=== PATIENT | male | born 1935 | race Caucasian/White ===

== ENCOUNTER 2016-09-05 11:00 | Outpatient (RCR) | payer MEDICARE ==
--- OUTSIDE RECORDS SUMMARY | 2016-08-08 08:57 | XMS REPORT | Continuity of Care Document ---
Author Author [facility] Organization [facility] Address Unknown Phone Unavailable Care Team Providers Care Youth Services Specialist Name Role Phone CALVIN GREEN MD PCP Insurance Providers Payer Name Policy Number Subscriber Name Relationship [employer] Medicare [id number] Carlos Culp 18 Self / Same As Patient Blue Cross [facility] Supp [id number] Carlos Culp Self / Same As Patient Advance Directives Directive Response Recorded Date/Time Advance Directives No 10/31/15 2:48pm Health Care Power of Carton Folder No 10/31/15 2:48pm Organ Donor No 10/31/15 2:48pm Resuscitation Status Full Code 10/31/15 2:48pm Chief Complaint and Reason for Visit Chief Complaint Neuro-Stroke Like Symptoms Reason for Visit Transient cerebral ischemia Problems Active Problems Medical Problem Onset Date Status Transient cerebral ischemia Unknown Acute Medications Current Home Medications Medication Dose Units Route Directions Days/Qty Instructions Start Date Allopurinol 300 Mg 300 Mg Oral Daily 10/29/14 Atorvastatin 20 Mg 20 Mg Oral 1700 10/29/14 Lisinopril 40 Mg 40 Mg Oral Daily 10/29/14 Labetalol Hcl (Trandate) 200 Mg 200 Mg Oral Twice A Day 10/29/14 [place]-3/Dha/Epa/Fish Oil 1 Each 1,400 Mg Oral Daily 10/29/14 Vit B12/Lm-Folate Ca/Vit B6/B2 1 Tab 1 Tab Oral Daily 10/31/14 [Amlodipine Besylate] 10 Mg 10 Mg Oral Daily 11/01/14 Docusate Sodium 100 Mg 100 Mg Oral Daily 30 11/08/14 Aspirin 81 Mg 81 Mg Oral Twice A Day 60 Days 11/08/14 Past Home Medications Medication Directions Ordered Status Aspirin 81 Mg Tablet.dr, 81 Mg Oral Daily 10/29/14 Discontinued Naproxen Sodium 220 Mg Tablet, 440 Mg Oral Twice A Day 10/29/14 Discontinued [Cerefalin] , 1 Ea Oral Daily 10/30/14 Discontinued Dipyridamole/Aspirin 1 Ea Cap, 1 Ea Oral Twice A Day 11/01/14 Discontinued Tramadol Hcl 50 Mg Tablet, 50 Mg Oral Four Times Daily as needed for Maria Fernanda Discontinued Social History Social History Problem Response Recorded Date/Time Alcohol Use Denies Use 10/31/2015 2:48pm Recreational Drug Use No 10/31/2015 2:48pm Recent Foreign Travel No 10/31/2015 2:25pm Recent Infectious Disease Exposure No 10/31/2015 2:25pm Hospitalization with Isolation Denies 10/31/2015 2:25pm Sexually Transmitted Disease No 10/31/2015 2:48pm HIV/AIDS No 10/31/2015 2:48pm Smoking Status Never a Smoker 10/31/2015 2:48pm Do you dip or chew tobacco? Y CHEWS 2-3 TIMES A DAY 10/31/2015 2:48pm Query Response Start Date Stop Date Smoking Status Never a Smoker Hospital Discharge Instructions No hospital discharge instructions. Plan of Care Discharge Date 10/31/15 3:48pm Disposition 01 HOME, SELF-CARE Instructions/Education Provided Transient Ischemic Attack (ED) Prescriptions See Medication Section Referrals CALVIN GREEN MD - Primary Care Physician Additional Instructions/Education INCREASE YOUR DAILY ASPIRIN DOSE TO A FULL 325 MG ASPIRIN ( OR 4 BABY ASPIRIN) A DAY TAKE YOUR REGULAR MEDICATIONS PRESCRIBED FOLLOW UP WITH DR. GREEN NEXT WEEK RETURN TO ER IF SYMPTOMS WORSEN All discharge instructions reviewed with patient and/or family. Voiced understanding. Functional Status No functional status results. Allergies, Adverse Reactions, Alerts No known allergies. Immunizations Name Given Type Date of Pneumonia Vaccine 11/03/11 Historical Tetanus Booster (TDap) Unknown Historical Vital Signs Acute Vital Signs Vital Response Date/Time Temperature (Fahrenheit) 97.9 degrees F (97.6 - 99.5) 10/31/2015 2:25pm Temperature (Calculated Celsius) 36.17506 degrees C (36.4 - 37.5) 10/31/2015 2:25pm Pulse Rate (adult) 61 bpm (60 - 90) 10/31/2015 2:25pm Respiratory Rate 14 bpm (12 - 24) 10/31/2015 2:25pm O2 Sat by Pulse Oximetry 98 % (88 - 100) 10/31/2015 2:25pm Blood Pressure 184/87 mm Hg 10/31/2015 2:25pm Blood Pressure Mean 119 mm Hg 10/31/2015 2:25pm Pain Pain Intensity 0 10/31/2015 2:25pm Height (Feet) 6 feet 10/31/2015 2:25pm Height (Inches) 1 inches 10/31/2015 2:25pm Height (Calculated Centimeters) 185.820357 cm 10/31/2015 2:25pm Weight (Pounds) 215 pounds 10/31/2015 2:25pm Weight (Calculated Kilograms) 97.331882 kilograms 10/31/2015 2:25pm Height 6 ft 1 in Weight 215 lb Body Mass Index 28.4 kg/m^2 Results Laboratory Results Test Name Result Units Flags Reference Collection Date/Time Result Date/ Time Comments White Blood Count 11.8 10^3/uL H 4.3-11.0 10/31/2015 2:32pm 10/31/2015 2: 41pm Red Blood Count 4.51 10^6/uL 4.35-5.85 10/31/2015 2:32pm 10/31/2015 2: 41pm Hemoglobin 14.4 G/DL 13.3-17.7 10/31/2015 2:32pm 10/31/2015 2:41pm Hematocrit 41 % 40-54 10/31/2015 2:32pm 10/31/2015 2:41pm Mean Corpuscular Volume 91 FL 80-99 10/31/2015 2:32pm 10/31/2015 2: 41pm Mean Corpuscular Hemoglobin 32 PG 25-34 10/31/2015 2:32pm 10/31/2015 2: 41pm Mean Corpuscular Hemoglobin Concent 35 G/DL 32-36 10/31/2015 2:32pm 2:41pm Red Cell Distribution Width 13.4 % 10.0-14.5 10/31/2015 2:32pm 2015 2:41pm Platelet Count 272 10^3/uL 130-400 10/31/2015 2:[facility] 10/31/2015 2:41pm Mean Platelet Volume 10.0 FL 7.4-10.4 10/31/2015 2:[facility] 10/31/2015 2: 41pm Neutrophils (%) (Auto) 74 % 42-75 10/31/2015 2:[facility] 10/31/2015 2:41pm Lymphocytes (%) (Auto) 14 % 12-44 10/31/2015 2:[facility] 10/31/2015 2:41pm Monocytes (%) (Auto) 10 % 0-12 10/31/2015 2:[facility] 10/31/2015 2:41pm Eosinophils (%) (Auto) 2 % 0-10 10/31/2015 2:[facility] 10/31/2015 2:41pm Basophils (%) (Auto) 0 % 0-10 10/31/2015 2:[facility] 10/31/2015 2:41pm Neutrophils # (Auto) 8.7 X 10^3 H 1.8-7.8 10/31/2015 2:[facility] 10/31/2015 2: 41pm Lymphocytes # (Auto) 1.7 X 10^3 1.0-4.0 10/31/2015 2:[facility] 10/31/2015 2: 41pm Monocytes # (Auto) 1.1 X 10^3 H 0.0-1.0 10/31/2015 2:[facility] 10/31/2015 2: 41pm Eosinophils # (Auto) 0.2 10^3/uL 0.0-0.3 10/31/2015 2:[facility] 10/31/2015 2 :41pm Basophils # (Auto) 0.0 10^3/uL 0.0-0.1 10/31/2015 2:[facility] 10/31/2015 2: 41pm Prothrombin Time 13.2 SEC 12.2-14.7 10/31/2015 2:[facility] 10/31/2015 2: 53pm INR Comment 1.0 0.8-1.4 10/31/2015 2:[facility] 10/31/2015 2:53pm INTERPRETIVE DATA SUGGESTED THERAPEUTIC RANGE FOR INR'S: VENOUS THROMBOSIS, PULMONARY EMBOLISM, OR PREVENTION OF SYSTEMIC EMBOLISM (EG. IN ATRIAL FIBRILLATION): 2.0 - 3.0 MECHANICAL PROSTHETIC HEART VALVES: 2.5 - 3.5* *NOTE: INR'S UP TO 4.5 MAY BE NECESSARY IN SELECTED GROUPS OF HIGH RISK PATIENTS. [employer] CONSENSUS CONFERENCE ON ANTITHROMBOTIC THERAPY (2000). Activated Partial Thromboplast Time 28 SEC 24-35 10/31/2015 2: 2:53pm Sodium Level 139 MMOL/L 135-145 10/31/2015 2:10/31/2015 3:02pm Potassium Level 3.8 MMOL/L 3.6-5.0 10/31/2015 2:10/31/2015 3:02pm Chloride Level 106 MMOL/L 98-107 10/31/2015 2:10/31/2015 3:02pm Carbon Dioxide Level 24 MMOL/L 21-32 10/31/2015 2:10/31/2015 3: 02pm Anion Gap 9 MMOL/L 5-14 10/31/2015 2: 10/31/2015 3:02pm Blood Urea Nitrogen 21 MG/DL H 7-18 10/31/2015 2:10/31/2015 3:02pm Creatinine 1.26 MG/DL 0.60-1.30 10/31/2015 2:10/31/2015 3:02pm BUN/Creatinine Ratio 17 10/31/2015 2:10/31/2015 3:02pm Estimat Glomerular Filtration Rate 55 10/31/2015 2:10/31/2015 3:02pm GFR INTERPRETIVE DATA UNITS FOR ESTIMATED GFR (eGFR): mL/min/1.73 M2 REFERENCE RANGE FOR ESTIMATED GFR (eGFR) eGFR NORMAL eGFR >60 MODERATELY DECREASED eGFR 30-59 SEVERLY DECREASED eGFR 15-29 KIDNEY FAILURE <15 (OR DIALYSIS) Glucose Level 119 MG/DL H 70-105 10/31/2015 2:10/31/2015 3:02pm Glucometer 102 MG/DL 70-110 10/31/2015 2:10/31/2015 2:50pm Calcium Level 8.8 MG/DL 8.5-10.1 10/31/2015 2:10/31/2015 3:02pm Magnesium Level 2.2 MG/DL 1.8-2.4 10/31/2015 2:10/31/2015 3:02pm Total Bilirubin 0.4 MG/DL 0.1-1.0 10/31/2015 2:32p 10/31/2015 3:02pm Alkaline Phosphatase 76 U/L 40-136 10/31/2015 2:[facility] 10/31/2015 3:02pm Aspartate Amino Transf (AST/SGOT) 15 U/L 5-34 10/31/2015 2:32p 2015 3:02pm Alanine Aminotransferase (ALT/SGPT) 24 U/L 0-55 10/31/2015 2:32p 10/30 3:02pm Troponin I < 0.30 NG/ML <0.30 10/31/2015 2:[facility] 10/31/2015 3:06pm Myoglobin 77.2 NG/ML 10.0-92.0 10/31/2015 2:[facility] 10/31/2015 3:06pm Total Protein 6.7 G/DL 6.4-8.2 10/31/2015 2:[facility] 10/31/2015 3:02pm Albumin 4.2 G/DL 3.2-4.5 10/31/2015 2:[facility] 10/31/2015 3:02pm Procedures Procedure Status Date Provider(s) Tracing only of electrocardiogram Active 10/31/15 NELLY CURRAN DO Encounters Encounter Location Arrival/Admit Date Discharge/Depart Date Attending Provider Departed Emergency Room [facility] 10/31/15 2:24pm 10/30 3:48pm NELLY CURRAN DO Recent Diagnosis
[~2016-09-05 11:00] MED LIST: ALLO300T2 PO; ASPI-587 PO; ASPI81TA57 PO; ATOR20TA66 PO; Amlodipine Besylate PO; DCS100C PO; DPAS20025 PO; LBT200T PO; LISI40TA PO; NAPR220T76 PO; OMEG-9 PO; TRAM50TA2 PO; VIT1TABL5 PO; [UNRECOGNIZED DRUG - OTHER] PO
== END 2016-09-05 12:02 | disposition home or self-care (01) ==
PROVIDERS: ATTEND Internal Medicine
DX: I69.354 Hemiplegia and hemiparesis following cerebral infarction affecting left non-dominant side (principal); I10 Essential (primary) hypertension; Z96.651 Presence of right artificial knee joint

== ENCOUNTER 2016-11-02 09:29 | Emergency (ER) | payer MEDICARE ==
[~2016-11-02] VITALS: Ht 185.4 cm; Wt 97.5 kg
--- NOTE | 2016-11-02 11:50 | ED Fall/Injury ---
General Chief Complaint: Trauma-Non Activation Stated Complaint: L SIDE BUTOCKS PAIN, R KNEE PAIN FROM FALL Nursing Triage Note: FALL Source: patient Exam Limitations: no limitations History of Present Illness Time seen by provider: 11:48 Initial Comments To ER with left hip and right knee pain. This began last night. Patient was going into his garage using his cane to get a frozen pizza for dinner. In doing so he fell landing on left side. Did not hit his head and denies any neck pain. Has a small ecchymosis to the left forearm dorsally, pain to the left hip and right knee. He has been ambulatory since the fall yesterday. Location Injury Occurred: HOME Occurred: yesterday Severity: moderate Injuries/Pain Location: lower extremity Context: tripped Loss of Consciousness: no loss of consciousness Allergies and Home Medications Allergies Coded Allergies: No Known Drug Allergies (Unverified , 10/29/14) Home Medications Allopurinol 300 Mg Tab, 300 MG PO DAILY, (Reported) Aspirin 81 Mg Tablet.dr, 81 MG PO BID for 60 Days Prescribed by: CALVIN GREEN on 11/08/14 1016 Atorvastatin 20 Mg Tablet, 20 MG PO 1700, (Reported) Docusate Sodium 100 Mg Cap, 100 MG PO DAILY, #30 Prescribed by: CALVIN GREEN on 11/08/14 1008 Labetalol Hcl 200 Mg Tablet, 200 MG PO BID, (Reported) Lisinopril 40 Mg Tablet, 40 MG PO DAILY, (Reported) [place]-3/Dha/Epa/Fish Oil 1 Each Capsule.dr, 1,400 MG PO DAILY, (Reported) Vit B12/Lm-Folate Ca/Vit B6/B2 1 Tab Tablet, 1 TAB PO DAILY, (Reported) [Amlodipine Besylate] 10 MG TABLET, 10 MG PO DAILY Prescribed by: CALVIN GREEN on 11/01/14 0801 Constitutional: see HPI Eyes: No Symptoms Reported Ears, Nose, Mouth, Throat: no symptoms reported Respiratory: no symptoms reported Cardiovascular: no symptoms reported Genitourinary: no symptoms reported Musculoskeletal: see HPI Skin: no symptoms reported Past Paeliit-Egyeas-Ogpryq Hx Patient Social History Alcohol Use: Regular Use Recreational Drug Use: No Type Used: Smokeless Tobacco 2nd Hand Smoke Exposure: No Recent Foreign Travel: No Contact w/Someone Who Travel: No Recent Infectious Disease Expo: No Recent Hopitalizations: No Immunizations Up To Date Tetanus Booster (TDap): Unknown Date of Pneumonia Vaccine: November 03, 2011 Seasonal Allergies Seasonal Allergies: No Surgeries HX Surgeries: Yes (KNEE SURGERY-; LEFT ROTATOR CUFF REPAIR) Surgeries: Orthopedic Respiratory Hx Respiratory Disorders: No Cardiovascular Hx Cardiac Disorders: Yes Cardiac Disorders: High Cholesterol, Hypertension Neurological Hx Neurological Disorders: Yes Neurological Disorders: Dementia, Stroke, TIA Reproductive System Hx Reproductive Disorders: No Sexually Transmitted Disease: No HIV/AIDS: No Genitourinary Hx Genitourinary Disorders: No Gastrointestinal Hx Gastrointestinal Disorders: No Musculoskeletal Hx Musculoskeletal Disorders: Yes (LEFT SIDE WEAKNESS FROM PRIOR CVA) Musculoskeletal Disorders: Gout Endocrine Hx Endocrine Disorders: No HEENT HX ENT Disorders: No Loss of Vision: Denies Hearing Impairment: Denies Cancer Hx Cancer: No Psychosocial Hx Psychiatric Problems: No Integumentary HX Skin/Integumentary Disorder: No Blood Transfusions Hx Blood Disorders: No Family Medical History Family Medial History: ASBESTOS 19 FATHER CEREBRAL HEMORRHAGE 19 MOTHER Myocardial infarction G8 BROTHER RHEUMATOID ARTHRITIS G8 BROTHER Physical Exam Vital Signs Vital Sign - Last 12Hours 11/02/16 11:03 Temp 97.1 Pulse 68 Resp 16 B/P (MAP) 127/62 Pulse Ox 96 O2 Delivery Room Air Capillary Refill : Less Than 3 Seconds General Appearance: WD/WN, no apparent distress HEENT: PERRL/EOMI, normal ENT inspection Neck: non-tender, full range of motion Respiratory: no respiratory distress, no accessory muscle use Gastrointestinal: normal bowel sounds, non tender, soft Extremities: normal range of motion, non-tender, normal inspection, other ( dime sized area of erythema to the anterior right knee without effusion or ecchymosis or deformity. Additionally, there is no ecchymosis or erythema or deformity to the left hip.) Neurologic/Psychiatric: alert, normal mood/affect, oriented x 3 Skin: normal color, warm/dry Comments Patient is noted to be ambulatory to room 2 with the use of his cane.. Yousif Coma Score Best Eye Response: (4) Open Spontaneously Best Verbal Response: (5) Oriented Best Motor Response: (6) Obeys Commands Gypsy Total: 15 Progress/Results/Core Measures Results/Orders My Orders Orders - HUSSEIN LEAHY APRN Hip, Left, 2 Views (11/02/16 11:09) Knee, Right, 3 Views (11/02/16 11:09) Vital Signs/I&O Vital Sign - Last 12Hours 11/02/16 11:03 Temp 97.1 Pulse 68 Resp 16 B/P (MAP) 127/62 Pulse Ox 96 O2 Delivery Room Air Blood Pressure Mean: 83 Departure Impression Impression: Primary Impression: Contusion Additional Impression: Fall Disposition: HOME, SELF-CARE Condition: Stable Departure-Patient Inst. Decision time for Depature: 11:50 Referrals: CALVIN GREEN MD (PCP) Primary Care Physician Patient Instructions: Contusion (DC) Add. Discharge Instructions: 1. Return to ER for any concerns 2. Follow-up with your doctor next week 3. All discharge instructions reviewed with patient and/or family. Voiced understanding. HUSSEIN LEAHY EMAIL MARKETING ASSISTANT November 02, 2016 11:50
--- NOTE | 2016-11-02 11:58 | Diagnostic Imaging Report ---
INDICATION: Fall. Pain. COMPARISON: None. FINDINGS: Two views of the left hip are obtained. No acute fracture, malalignment, or osseous destructive process is seen. Hip joint space is preserved. Femoral head appears smooth and round. There are postoperative changes in left pelvis. IMPRESSION: No acute abnormality is demonstrated. Dictated by: Dictated on workstation # [id number]
--- NOTE | 2016-11-02 12:06 | Diagnostic Imaging Report ---
INDICATION: Fall. Pain. COMPARISON: None FINDINGS: 3 views of the right knee are obtained. No acute fracture, malalignment or osseous destructive process is seen. There is mild tricompartmental degenerative change with tricompartmental spurring and some narrowing of the medial patellofemoral joint space. The soft tissues appear unremarkable allowing for atherosclerosis. IMPRESSION: Degenerative changes. No acute fracture is seen. Dictated by: Dictated on workstation # [id number]
[2016-11-02 12:14] VITALS: BP 96/59
== END 2016-11-02 12:10 | disposition home or self-care (01) ==
LOC: EDUNIT# 09:29 → ER 09:31
DX: S70.02XA Contusion of left hip, initial encounter (principal); S80.01XA Contusion of right knee, initial encounter; S50.12XA Contusion of left forearm, initial encounter; I10 Essential (primary) hypertension; I69.954 Hemiplegia and hemiparesis following unspecified cerebrovascular disease affecting left non-dominant side; F03.90 Unspecified dementia, unspecified severity, without behavioral disturbance, psychotic disturbance, mood disturbance, and anxiety; F17.220 Nicotine dependence, chewing tobacco, uncomplicated; Z79.82 Long term (current) use of aspirin; Z79.899 Other long term (current) drug therapy; W01.0XXA Fall on same level from slipping, tripping and stumbling without subsequent striking against object, initial encounter; Y92.015 Private garage of single-family (private) house as the place of occurrence of the external cause; Y99.8 Other external cause status
CPT/HCPCS: 73502; 73562; 99282

== ENCOUNTER 2017-08-21 13:41 | Outpatient (RCR) | payer MEDICARE | END 2017-09-18 11:43 | disposition home or self-care (01) | PROVIDERS: ATTEND Internal Medicine | DX: R53.81 Other malaise (principal); Z95.0 Presence of cardiac pacemaker; Z86.73 Personal history of transient ischemic attack (TIA), and cerebral infarction without residual deficits ==

== ENCOUNTER 2017-12-04 12:45 | Outpatient (RCR) | payer MEDICARE | END 2017-12-04 13:58 | disposition home or self-care (01) | PROVIDERS: ATTEND Internal Medicine | DX: G57.32 Lesion of lateral popliteal nerve, left lower limb (principal); Z86.73 Personal history of transient ischemic attack (TIA), and cerebral infarction without residual deficits ==

== ENCOUNTER 2018-05-03 10:33 | Emergency (ER) | payer MEDICARE ==
[~2018-05-03] VITALS: Ht 182.9 cm; Wt 95.3 kg
[2018-05-03 10:35] VITALS: BP 135/80
--- OUTSIDE RECORDS SUMMARY | 2018-05-03 10:39 | XMS REPORT | Continuity of Care Document ---
Author Author [facility] Organization [facility] Address Unknown Phone Unavailable Allergies Active Description Code Type Severity Reaction Onset Reported/Identified Relationship to Patient Clinical Status Yes No Known Drug Allergies [id number] Drug Allergy Unknown N/A 10/29/2014 Medications There is no data. Problems Date Dx Coded Attending Type Code Diagnosis Diagnosed By 05/15/1142 NORMA SIDHU, CALVIN Arteaga Ot R53.81 OTHER MALAISE 05/15/1142 CALVIN GREEN MD Ot Z86.73 PRSNL HX OF TIA (TIA), AND CEREB INFRC W 05/15/1142 CALVIN GREEN MD Ot Z95.0 PRESENCE OF CARDIAC PACEMAKER 05/15/1357 CALVIN GREEN MD Ot G57.32 LESION OF LATERAL POPLITEAL NERVE, LEFT 05/15/1357 CALVIN GREEN MD Ot Z86.73 PRSNL HX OF TIA (TIA), AND CEREB INFRC W 05/15/1422 BARRETT SIDHU, EMILY Ha Ot M70.61 TROCHANTERIC BURSITIS, RIGHT HIP 12/13/2013 BARRETT SIDHU, EMILY Ha Ot 724.3 12/13/2013 EMILY HYDE MD Ot V57.1 07/01/2014 Ot 305.1 07/01/2014 Ot 719.41 07/01/2014 NORMA SIDHU, CALVIN Arteaga Ot 331.9 07/01/2014 NORMA SIDHU, CALVIN Arteaga Ot 401.9 07/01/2014 NORMA SIDHU, CALVIN Arteaga Ot 780.93 07/25/2014 NORMA SIDHU, CALVIN Arteaga Ot 433.10 07/27/2014 NORMA SIDHU, CALVIN Arteaga Ot 433.10 11/02/2014 NORMA SIDHU, CALVIN Arteaga Ot 272.4 11/02/2014 NORMA SIDHU, CALVIN Arteaga Ot 274.9 11/02/2014 NORMA SIDHU, CALVIN Arteaga Ot 342.90 11/02/2014 NORMA SIDHU, CALVIN Arteaga Ot 401.0 11/02/2014 NORMA SIDHU, CALVIN Arteaga Ot 427.89 11/02/2014 NORMA SIDHU, CALVIN Arteaga Ot 433.10 11/02/2014 NORMA SIDHU, CALVIN Arteaga Ot 433.30 11/02/2014 NORMA SIDHU, CALVIN Arteaga Ot 434.91 11/02/2014 NORMA SIDHU, CALVIN Arteaga Ot 781.2 11/02/2014 NORMA SIDHU, CALVIN Arteaga Ot 781.94 11/02/2014 NORMA SIDHU, CALVIN Arteaga Ot 787.02 11/02/2014 NORMA SIDHU, CALVIN Arteaga Ot 787.91 11/02/2014 NORMA SIDHU, CALVIN Arteaga Ot 840.4 11/02/2014 NORMA SIDHU, CALVIN Arteaga Ot E849.0 11/02/2014 NORMA SIDHU, CALVIN Arteaga Ot E888.9 11/02/2014 NORMA SIDHU, CALVIN Arteaga Ot V12.54 11/07/2014 ROSE MARIE SIDHU, SRI E Ot 272.4 11/07/2014 ROSE MARIE SIDHU, SRI E Ot 310.89 11/07/2014 ROSE MARIE SIDHU, SRI E Ot 401.9 11/07/2014 ROSE MARIE SIDHU, SRI E Ot 438.22 11/07/2014 ROSE MARIE SIDHU, SRI E Ot 719.41 11/07/2014 ROSE MARIE SIDHU, SRI E Ot 719.45 11/07/2014 RSOE MARIE SIDHU, SRI E Ot 787.91 11/07/2014 ROSE MARIE SIDHU, SRI E Ot E849.7 11/07/2014 ROSE MARIE SIDHU, SRI E Ot E942.4 11/07/2014 ROSE MARIE SIDHU, SRI E Ot V57.89 11/08/2014 ROSE MARIE SIDHU, SRI E Ot 272.4 11/08/2014 ROSE MARIE SIDHU, SRI E Ot 310.89 11/08/2014 ROSE MARIE SIDHU, SRI E Ot 401.9 11/08/2014 ROSE MARIE SIDHU, SRI E Ot 438.22 11/08/2014 ROSE MARIE SIDHU, SRI E Ot 719.41 11/08/2014 ROSE MARIE SIDHU, SRI E Ot 719.45 11/08/2014 ROSE MARIE SIDHU, SRI E Ot 787.91 11/08/2014 ROSE MARIE SIDHU, SRI E Ot E849.7 11/08/2014 ROSE MARIE SIDHU, SRI E Ot E942.4 11/08/2014 ROSE MARIE SIDHU, SRI E Ot V57.89 11/11/2014 Ot 305.1 11/11/2014 Ot 719.41 11/11/2014 NORMA SIDHU, CALVIN Arteaga Ot 331.9 11/11/2014 NORMA SIDHU, CALVIN Arteaga Ot 401.9 11/11/2014 NORMA SIDHU, CALVIN Arteaga Ot 780.93 11/11/2014 NORMA SIDHU, CALVIN Arteaga Ot 433.10 11/14/2014 NORMA SIDHU, CALVIN Arteaga Ot V12.54 11/14/2014 NORMA SIDHU, CALVIN Arteaga Ot V57.21 11/25/2014 NORMA SIDHU, CALVIN Arteaga Ot V12.54 11/25/2014 NORMA SIDHU, CALVIN Arteaga Ot V57.21 11/30/2014 NORMA SIDHU, CALVIN Arteaga Ot V12.54 11/30/2014 NORMA SIDHU, CALVIN Arteaga Ot V57.21 11/30/2014 NORMA SIDHU, CALVIN Arteaga Ot V12.54 11/30/2014 NORMA SIDHU, CALVIN Arteaga Ot V57.21 12/19/2014 NORMA SIDHU, CALVIN Arteaga Ot V12.54 12/19/2014 NORMA SIDHU, CALVIN Arteaga Ot V57.21 12/22/2014 NORMA SIDHU, CALVIN Arteaga Ot V12.54 12/22/2014 NORMA SIDHU, CALVIN Arteaga Ot V57.21 10/31/2015 MAGDY DO, NELLY K Ot G45.9 TRANSIENT CEREBRAL ISCHEMIC ATTACK, UNSP 10/31/2015 MAGDY DO, NELLY K Ot 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 10/31/2015 MAGDY DO, NELLY K Ot 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 11/01/2015 MAGDY DO, NELLY K Ot G45.9 TRANSIENT CEREBRAL ISCHEMIC ATTACK, UNSP 11/01/2015 MAGDY DO, NELLY K Ot 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 11/01/2015 MAGDY DO, NELLY K Ot 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 11/06/2015 MAGDY DO, NELLY K Ot G45.9 TRANSIENT CEREBRAL ISCHEMIC ATTACK, UNSP 11/06/2015 MAGDY DO, NELLY K Ot 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 11/06/2015 MAGDY DO, NELLY K Ot 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 01/25/2016 BARRETT SIDHU, EMILY Ha Ot M70.61 TROCHANTERIC BURSITIS, RIGHT HIP 09/05/2016 CALVIN GREEN MD Ot I10 ESSENTIAL (PRIMARY) HYPERTENSION 09/05/2016 NORMA SIDHU, CALVIN Arteaga Ot I69.354 HEMIPLGA FOLLOWING CEREBRAL INFRC AFFECT 09/05/2016 CALVIN GREEN MD Ot Z96.651 PRESENCE OF RIGHT ARTIFICIAL KNEE JOINT 11/02/2016 HUSSEIN LEAHY APRN Ot F03.90 UNSPECIFIED DEMENTIA WITHOUT BEHAVIORAL 11/02/2016 HUSSEIN LEAHY APRN Ot F17.220 NICOTINE DEPENDENCE, CHEWING TOBACCO, UN 11/02/2016 HUSSEIN LEAHY APRN Ot I10 ESSENTIAL (PRIMARY) HYPERTENSION 11/02/2016 HUSSEIN LEAHY APRN Ot 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82 ALF (CURRENT) USE OF ASPIRIN 11/02/2016 HUSSEIN LEAHY APRN Ot Z79.899 OTHER SENIOR FUNCTIONAL ANALYST (CURRENT) DRUG THERAPY 11/05/2016 HUSSEIN LEAHY APRN Ot F03.90 UNSPECIFIED DEMENTIA WITHOUT BEHAVIORAL 11/05/2016 HUSSEIN LEAHY APRN Ot F17.220 NICOTINE DEPENDENCE, CHEWING TOBACCO, UN 11/05/2016 HUSSEIN LEAHY APRN Ot I10 ESSENTIAL (PRIMARY) HYPERTENSION 11/05/2016 HUSSEIN LEAHY APRN Ot 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82 ALF (CURRENT) USE OF ASPIRIN 11/05/2016 HUSSEIN LEAHY APRN Ot Z79.899 OTHER ALF (CURRENT) DRUG THERAPY 11/08/2016 HUSSEIN LEAHY APRN Ot F03.90 UNSPECIFIED DEMENTIA WITHOUT BEHAVIORAL 11/08/2016 HUSSEIN LEAHY APRN Ot F17.220 NICOTINE DEPENDENCE, CHEWING TOBACCO, UN 11/08/2016 HUSSEIN LEAHY APRN Ot I10 ESSENTIAL (PRIMARY) HYPERTENSION 11/08/2016 HUSSEIN LEAHY APRN Ot 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82 SENIOR FUNCTIONAL ANALYST (CURRENT) USE OF ASPIRIN 11/08/2016 HUSSEIN LAEHY APRN Ot Z79.899 OTHER SENIOR FUNCTIONAL ANALYST (CURRENT) DRUG THERAPY 08/22/2017 CALVIN GREEN MD Ot R53.81 OTHER MALAISE 08/22/2017 CALVIN GREEN MD Ot Z86.73 PRSNL HX OF TIA (TIA), AND CEREB INFRC W 08/22/2017 CALVIN GREEN MD Ot Z95.0 PRESENCE OF CARDIAC PACEMAKER 08/22/2017 CALVIN GREEN MD Ot R53.81 OTHER MALAISE 08/22/2017 CALVIN GREEN MD, Ot Z86.73 PRSNL HX OF TIA (TIA), AND CEREB INFRC W 08/22/2017 CALVIN GREEN MD Ot Z95.0 PRESENCE OF CARDIAC PACEMAKER 09/18/2017 CALVIN GREEN MD Ot R53.81 OTHER MALAISE 09/18/2017 CALVIN GREEN MD, Ot Z86.73 PRSNL HX OF TIA (TIA), AND CEREB INFRC W 09/18/2017 CALVIN GREEN MD Ot Z95.0 PRESENCE OF CARDIAC PACEMAKER 12/05/2017 CALVIN GREEN MD Ot G57.32 LESION OF LATERAL POPLITEAL NERVE, LEFT 12/05/2017 CALVIN GREEN MD Ot Z86.73 PRSNL HX OF TIA (TIA), AND CEREB INFRC W 12/10/2017 CALVIN GREEN MD Ot G57.32 LESION OF LATERAL POPLITEAL NERVE, LEFT 12/10/2017 CALVIN GREEN MD Ot Z86.73 PRSNL HX OF TIA (TIA), AND CEREB INFRC W Procedures There is no data. Results There is no data. Encounters ACCT No. Visit Date/Time Discharge Status Pt. Type Provider Facility Loc./Unit Complaint [id number] 12/04/2017 12:45:00 12/04/2017 13:58:00 DIS Outpatient CALVIN GREEN MD [facility] REHAB R CVA; L PERONEAL PALSY [id number] 08/21/2017 13:41:00 09/18/2017 11:43:00 DIS Outpatient CALVIN GREEN MD [facility] REHAB DEBILITY POST CVA; RECENT PACEMAKER [id number] 11/02/2016 09:31:00 11/02/2016 12:10:00 DIS Emergency HUSSEIN LEAHY DATA PROCESSING SUPERVISOR [facility] ER L SIDE BUTOCKS PAIN, R KNEE PAIN FROM FALL [id number] 09/05/2016 11:00:00 09/05/2016 12:02:00 DIS Outpatient CALVIN GREEN MD [facility] 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 [id number] 01/25/2016 12:44:00 01/25/2016 14:23:00 DIS Outpatient EMILY HYDE MD [facility] REHAB R TROCH BURSITIS;LE WEAKNESS;L SIDED WEAKNESS CVA [id number] 10/31/2015 14:24:00 10/31/2015 15:48:00 DIS Emergency NELLY CURRAN DO [facility] ER [id number] 01/05/2015 10:07:00 01/05/2015 12:16:00 DIS Outpatient CALVIN GREEN MD [facility] REHAB [id number] 11/02/2014 09:30:00 11/08/2014 13:30:00 DIS Inpatient ROSE MARIE SIDHU, SRI Price [facility] IRF [id number] 10/29/2014 19:45:00 11/02/2014 09:30:00 DIS Inpatient CALVIN GREEN MD [facility] 4TH [id number] 07/01/2014 13:36:00 07/01/2014 23:59:59 CLS Outpatient CALVIN GREEN MD [facility] RAD [id number] 11/10/2013 13:11:00 12/13/2013 13:38:00 [id number] 11/09/2013 11:55:00 11/09/2013 23:59:59 CLS Outpatient CALVIN GREEN MD [facility] RAD [id number] 11/07/2009 12:56:00 Document Registration [id number] 01/05/2015 10:07:37 ACT Document Registration
--- NOTE | 2018-05-03 10:48 | ED Neurological Problem ---
General Stated Complaint: L SIDED WEAKNESS, FALLS Source: patient Exam Limitations: no limitations History of Present Illness Date Seen by Provider: May 03, 2018 Time Seen by Provider: 10:37 Initial Comments Here with report of increasing weakness over the last couple days and has fallen. Has not his head. Does have history of less sided stroke and wears a brace on the left foot. Takes aspirin daily. Denies nausea, vomiting or fevers. ENT drinking okay although maybe not drinking as much fluid as he is supposed to. Taking his medicines as directed. He does follow up with Dr. Asencio. Timing/Duration: waxing and waning, other (one to 2 days) Severity: moderate Associated Symptoms: No confusion, No fatigue, No fever/chills, No nausea/ vomiting, No paresthesia, No slurred speech; weakness Allergies and Home Medications Allergies Coded Allergies: No Known Drug Allergies (Unverified , 10/29/14) Home Medications Allopurinol 300 Mg Tab, 300 MG PO DAILY, (Reported) Aspirin 81 Mg Tablet., 81 MG PO BID Prescribed by: CALVIN ASENCIO on 11/08/14 1016 Atorvastatin 20 Mg Tablet, 20 MG PO 1700, (Reported) Docusate Sodium 100 Mg Cap, 100 MG PO DAILY Prescribed by: CALVIN ASENCIO on 11/08/14 1008 Labetalol Hcl 200 Mg Tablet, 200 MG PO BID, (Reported) Lisinopril 40 Mg Tablet, 40 MG PO DAILY, (Reported) [place]-3/Dha/Epa/Fish Oil 1 Each Capsule.dr, 1,400 MG PO DAILY, (Reported) Vit B12/Lm-Folate Ca/Vit B6/B2 1 Tab Tablet, 1 TAB PO DAILY, (Reported) [Amlodipine Besylate] 10 MG TABLET, 10 MG PO DAILY Prescribed by: CALVIN ASENCIO on 11/01/14 0801 Patient Home Medication List Home Medication List Reviewed: Yes Review of Systems Review of Systems Constitutional: see HPI; No chills, No fever; weakness Eyes: No Symptoms Reported Ears, Nose, Mouth, Throat: no symptoms reported Respiratory: no symptoms reported Cardiovascular: no symptoms reported; No palpitations, No syncope Gastrointestinal: No abdominal pain, No nausea, No vomiting Genitourinary: no symptoms reported Psychiatric/Neurological: Denies Headache; Weakness All Other Systems Reviewed Negative Unless Noted: Yes Past Iqifutl-Ocuqsl-Ytqwne Hx Past Med/Social Hx: Reviewed Nursing Past Med/Soc Hx Patient Social History Alcohol Use: Occasionally Uses Alcohol Beverage of Choice: Beer Recreational Drug Use: No Type Used: Smokeless Tobacco 2nd Hand Smoke Exposure: No Recent Foreign Travel: No Contact w/Someone Who Travel: No Recent Hopitalizations: No Immunizations Up To Date Tetanus Booster (TDap): Unknown Date of Pneumonia Vaccine: November 03, 2011 Seasonal Allergies Seasonal Allergies: No Past Medical History Surgeries: Yes (KNEE SURGERY-; LEFT ROTATOR CUFF REPAIR) Orthopedic Respiratory: No Cardiac: Yes High Cholesterol, Hypertension Neurological: Yes Dementia, Stroke, TIA Reproductive Disorders: No Sexually Transmitted Disease: No HIV/AIDS: No Gastrointestinal: No Musculoskeletal: Yes (LEFT SIDE WEAKNESS FROM PRIOR CVA) Gout Endocrine: No Loss of Vision: Denies Hearing Impairment: Denies Cancer: No Psychosocial: No Integumentary: No Blood Disorders: No Family Medical History Reviewed Nursing Family Hx ASBESTOS 19 FATHER CEREBRAL HEMORRHAGE 19 MOTHER Myocardial infarction G8 BROTHER RHEUMATOID ARTHRITIS G8 BROTHER Physical Exam Vital Signs Vital Signs - First Documented 05/03/18 10:35 Temp 97.5 Pulse 66 Resp 18 B/P (MAP) 135/80 (98) Pulse Ox 99 Capillary Refill : Height, Weight, BMI Height: 6'1.00" Weight: 215lbs. 8.0oz. 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 Her nose on the left as well as slight left upper and lower extremity weakness that seems to be residual from previous stroke. No other abnormal neuro deficits noted. Stroke Stroke Thrombolytic Exclusion Age 18 or Over: Yes Progress/Results/Core Measures Results/Orders Lab Results Laboratory Tests Test 05/03/18 10:40 05/03/18 12:55 Range/Units White Blood Count 5.8 4.3-11.0 10^3/uL Red Blood Count 4.31 L 4.35-5.85 10^6/uL Hemoglobin 13.4 13.3-17.7 G/DL Hematocrit 39 L 40-54 % Mean Corpuscular Volume 91 80-99 FL Mean Corpuscular Hemoglobin 31 25-34 PG Mean Corpuscular Hemoglobin Concent 34 32-36 G/DL Red Cell Distribution Width 13.1 10.0-14.5 % Platelet Count 229 130-400 10^3/uL Mean Platelet Volume 9.4 7.4-10.4 FL Neutrophils (%) (Auto) 63 42-75 % Lymphocytes (%) (Auto) 24 12-44 % Monocytes (%) (Auto) 9 0-12 % Eosinophils (%) (Auto) 4 0-10 % Basophils (%) (Auto) 0 0-10 % Neutrophils # (Auto) 3.7 1.8-7.8 X 10^3 Lymphocytes # (Auto) 1.4 1.0-4.0 X 10^3 Monocytes # (Auto) 0.5 0.0-1.0 X 10^3 Eosinophils # (Auto) 0.2 0.0-0.3 10^3/uL Basophils # (Auto) 0.0 0.0-0.1 10^3/uL Prothrombin Time 13.9 12.2-14.7 SEC INR Comment 1.1 0.8-1.4 Activated Partial Thromboplast Time 33 24-35 SEC D-Dimer 0.87 H 0.00-0.49 UG/ML Sodium Level 140 135-145 MMOL/L Potassium Level 3.9 3.6-5.0 MMOL/L Chloride Level 106 98-107 MMOL/L Carbon Dioxide Level 24 21-32 MMOL/L Anion Gap 10 5-14 MMOL/L Blood Urea Nitrogen 14 7-18 MG/DL Creatinine 1.11 0.60-1.30 MG/DL Estimat Glomerular Filtration Rate > 60 BUN/Creatinine Ratio 13 Glucose Level 131 H 70-105 MG/DL Calcium Level 9.0 8.5-10.1 MG/DL Corrected Calcium 9.1 8.5-10.1 MG/DL Total Bilirubin 0.6 0.1-1.0 MG/DL Aspartate Amino Transf (AST/SGOT) 12 5-34 U/L Alanine Aminotransferase (ALT/SGPT) 10 0-55 U/L Alkaline Phosphatase 77 40-136 U/L Troponin I < 0.30 <0.30 NG/ML Total Protein 6.6 6.4-8.2 GM/DL Albumin 3.9 3.2-4.5 GM/DL Urine Color YELLOW Urine Clarity CLEAR Urine pH 5 5-9 Urine Specific [place] 1.020 1.016-1.022 Urine Protein 2+ H NEGATIVE Urine Glucose (UA) NEGATIVE NEGATIVE Urine Ketones NEGATIVE NEGATIVE Urine Nitrite NEGATIVE NEGATIVE Urine Bilirubin NEGATIVE NEGATIVE Urine Urobilinogen NORMAL NORMAL MG/DL Urine Leukocyte Esterase 1+ H NEGATIVE Urine RBC (Auto) 1+ H NEGATIVE Urine RBC RARE /HPF Urine WBC 10-25 H /HPF Urine Squamous Epithelial Cells RARE /HPF Urine Crystals NONE /LPF Urine Bacteria TRACE /HPF Urine Casts NONE /LPF Urine Mucus MODERATE H /LPF Urine Culture Indicated YES My Orders Orders - HYUN POMPA MD Cbc With Automated Diff (05/03/18 10:36) Protime With Inr (05/03/18 10:36) Partial Thromboplastin Time (05/03/18 10:36) Comprehensive Metabolic Panel (05/03/18 10:36) Fibrin Degradation Products (05/03/18 10:36) Troponin I (05/03/18 10:36) Ua Culture If Indicated (05/03/18 10:36) Chest 1 View, Ap/Pa Only (05/03/18 10:36) Ekg Tracing (05/03/18 10:36) Nothing By Mouth (05/03/18 Dinner) Accucheck Stat ONCE (05/03/18 10:36) Saline Lock/Iv-Start (05/03/18 10:36) Vital Signs Stroke Patient Q15M (05/03/18 10:36) Ct Head Wo-R/O Stroke (05/03/18 10:36) O2 (05/03/18 10:36) Intake & Output 06,14,22 (05/03/18 10:36) Monitor-Rhythm Ecg Trace Only (05/03/18 10:36) Dysphagia Screening Tool (05/03/18 10:36) Lipid Panel (05/04/18 06:00) I-Stat Bedside Testing (05/03/18 10:36) Amlodipine Tablet (Norvasc Tablet) (05/03/18 12:30) Saline Lock/Iv-Start (05/03/18 12:17) Ns Iv 500 Ml (Sodium Chloride 0.9%) (05/03/18 12:17) Urine Culture (05/03/18 12:55) Ceftriaxone For Iv Use (Rocephin For I (05/03/18 13:30) Medications Given in ED Current Medications Medications Dose Ordered Sig/Mark Route Start Time Stop Time Status Last Admin Dose Admin Amlodipine Besylate 5 mg ONCE ONCE PO 05/03/18 12:30 05/03/18 12:31 DC 05/03/18 12:23 5 MG Ceftriaxone Sodium 1000 mg/ Sodium Chloride 60 ml @ 100 mls/hr ONCE ONCE IV 05/03/18 13:30 05/03/18 14:05 05/03/18 13:34 100 MLS/HR Sodium Chloride 500 ml @ 0 mls/hr Q0M ONCE IV 05/03/18 12:17 05/03/18 12:19 DC 05/03/18 12:23 500 MLS/HR Vital Signs/I&O 05/03/18 10:35 Temp 97.5 Pulse 66 Resp 18 B/P (MAP) 135/80 (98) Pulse Ox 99 Progress Progress Note : Progress Note Seen and evaluated. IV, labs, EKG and chest x-ray ordered. CT head ordered for stroke and due to falls. Stroke scale done and is to her 3 on stroke scale for the left upper and lower surety weakness and mild left finger to nose deficit. Otherwise no significant findings. Patient is not TPA candidate as this is apparently his residual and onset in the last 2-3 days. Blood pressure is elevated and this is new for him. Reports taking his blood pressure medicines as directed. Monitor patient. Amlodipine 5 mg by mouth given. 1330 : UTI noted. This is likely adding to the cause of his symptoms. We'll go ahead and treat with Rocephin here but I do believe the patient can be safely discharged home afterwards. Patient and family agree. Rocephin 1 g IV ordered. Blood pressures essentially the same with amlodipine. We will continue that outpatient and have him follow-up with Dr. Asencio this week for recheck and further evaluation and for blood pressure adjustments as needed. I will write a small prescription for amlodipine. I will send a copy of the chart to Dr. Asencio. Discharged home with return precautions. Patient and family verbalize understanding instructions and agreement with plan. Diagnostic Imaging Diagonstic Imaging: CT Plain Films/CT/US/NM/MRI: head Comments NAME: [facility] REC#: [id number] PT STATUS: REG ER : 1935 PHYSICIAN: HYUN POMPA MD ADMIT DATE: 05/03/18/ER Signed Date of Exam: 05/03/18 CT HEAD WO-R/O STROKE PROCEDURE: CT head wo r/o stroke. TECHNIQUE: Multiple contiguous axial images were obtained through the brain without the use of intravenous contrast. INDICATION: Left-sided weakness. Hypertension. Recent falls. History of CVA. The ventricles are normal in size, shape and position. There is atrophy present. There is no acute parenchymal hemorrhage, edema or mass. There is no extra-axial mass or hemorrhage. IMPRESSION: Atrophy. No acute abnormality is seen with no significant change from 10/31/2015. Dictated by: Dictated on workstation # [id number] Dict: 05/03/18 1113 Trans: 05/03/18 1138 Interpreted by: SHAZIA SERNA MD Electronically signed by: SHAZIA SERNA MD 05/03/18 1138 Diagonstic Imaging: Xray Plain Films/CT/US/NM/MRI: chest Comments NAME: CARLOS SHORE [facility] REC#: [id number] PT STATUS: REG ER : 1935 PHYSICIAN: HYUN POMPA MD ADMIT DATE: 05/03/18/ER Signed Date of Exam: 05/03/18 CHEST 1 VIEW, AP/PA ONLY INDICATION: Stroke. Upright portable chest shows normal heart size and vascularity. The lungs are clear. There is no effusion or pneumothorax. A pacemaker is present. IMPRESSION: No acute abnormality is seen. There has been placement of a pacemaker, otherwise there is no change from 10/31/2015. Dictated by: Dictated on workstation # [id number] Dict: 05/03/18 1106 Trans: 05/03/18 1138 Interpreted by: SHAZIA SERNA MD Electronically signed by: SHAZIA SERNA MD 05/03/18 1138 Departure Impression Primary Impression: Urinary tract infection Qualified Codes: N30.00 - Acute cystitis without hematuria Additional Impression: Hypertension, uncontrolled Disposition: 01 HOME, SELF-CARE Condition: Improved Departure-Patient Inst. Decision time for Depature: 14:08 Referrals: CALVIN ASENCIO MD (PCP/Family) Primary Care Physician Patient Instructions: High Blood Pressure in Adults, Urinary Tract Infection, Adult (DC) Add. Discharge Instructions: Take medications as directed. Follow-up with your Dr. this week for recheck and further evaluation. Call his office in the morning. Take new medications as prescribed. Take other antibiotics as prescribed. You should start those tomorrow. Return for worse pain, fever, vomiting, weakness, breathing problems or other concerns as needed. Scripts Amlodipine Besylate (Amlodipine Besylate) 5 Mg Tablet 5 MG PO DAILY, #14 TAB 0 Refills Prov: HYUN POMPA MD 05/03/18 Cephalexin (Cephalexin) 500 Mg Tablet 500 MG PO BID, #10 TAB 0 Refills Prov: HYUN POMPA MD 05/03/18 Copy Copies To 1: CALVIN ASENCIO MD, TIMOTHY D MD May 03, 2018 10:48
[2018-05-03 10:59] LABS: BASOPHILS % (AUTO) 0 % (0-10); EOSINOPHILS # (AUTO) 0.2 10^3/uL (0.0-0.3); EOSINOPHILS % (AUTO) 4 % (0-10); HEMATOCRIT 39 % (40-54); HEMOGLOBIN 13.4 G/DL (13.3-17.7); LYMPHOCYTES # (AUTO) 1.4 X 10^3 (1.0-4.0); LYMPHOCYTES % (AUTO) 24 % (12-44); MEAN CORPUSCULAR HEMOGLOBIN 31 PG (25-34); MEAN CORPUSCULAR HGB CONC 34 G/DL (32-36); MEAN CORPUSCULAR VOLUME 91 FL (80-99); MEAN PLATELET VOLUME 9.4 FL (7.4-10.4); MONOCYTES # (AUTO) 0.5 X 10^3 (0.0-1.0); MONOCYTES % (AUTO) 9 % (0-12); NEUTROPHILS # (AUTO) 3.7 X 10^3 (1.8-7.8); NEUTROPHILS % (AUTO) 63 % (42-75); PLATELET COUNT 229 10^3/uL (130-400); RED BLOOD COUNT 4.31 10^6/uL (4.35-5.85); RED CELL DISTRIBUTION WIDTH 13.1 % (10.0-14.5); WHITE BLOOD COUNT 5.8 10^3/uL (4.3-11.0)
--- NOTE | 2018-05-03 11:09 | Diagnostic Imaging Report ---
INDICATION: Stroke. Upright portable chest shows normal heart size and vascularity. The lungs are clear. There is no effusion or pneumothorax. A pacemaker is present. IMPRESSION: No acute abnormality is seen. There has been placement of a pacemaker, otherwise there is no change from 10/31/2015. Dictated by: Dictated on workstation # [id number]
[2018-05-03 11:13] LABS: FIBRIN DEGRADATION PRODUCTS 0.87 UG/ML (0.00-0.49); INR 1.1 (0.8-1.4); PROTHROMBIN TIME PATIENT 13.9 SEC (12.2-14.7)
--- NOTE | 2018-05-03 11:16 | Diagnostic Imaging Report ---
PROCEDURE: CT head wo r/o stroke. TECHNIQUE: Multiple contiguous axial images were obtained through the brain without the use of intravenous contrast. INDICATION: Left-sided weakness. Hypertension. Recent falls. History of CVA. The ventricles are normal in size, shape and position. There is atrophy present. There is no acute parenchymal hemorrhage, edema or mass. There is no extra-axial mass or hemorrhage. IMPRESSION: Atrophy. No acute abnormality is seen with no significant change from 10/31/2015. Dictated by: Dictated on workstation # [id number]
[2018-05-03 11:19] LABS: ALANINE AMINOTRANSFERASE 10 U/L (0-55); ALBUMIN 3.9 GM/DL (3.2-4.5); ALKALINE PHOSPHATASE 77 U/L (40-136); BILIRUBIN,TOTAL 0.6 MG/DL (0.1-1.0); BUN/CREATININE RATIO 13; CARBON DIOXIDE 24 MMOL/L (21-32); CHLORIDE 106 MMOL/L (98-107); CREATININE SERUM 1.11 MG/DL (0.60-1.30); GFR ESTIMATED > 60; GLUCOSE 131 MG/DL (70-105); POTASSIUM 3.9 MMOL/L (3.6-5.0); SODIUM 140 MMOL/L (135-145); TOTAL PROTEIN 6.6 GM/DL (6.4-8.2)
[2018-05-03] MEDS ORDERED: NS IV 500 ML 500 ML IV ONE (12:17)
[2018-05-03] MEDS ORDERED: amLODIPine 5 MG (NORVASC) TAB PO ONE (12:30)
[2018-05-03 13:03] LABS: BILIRUBIN,URINE NEGATIVE (NEGATIVE); CLARITY,URINE CLEAR; COLOR,URINE YELLOW; GLUCOSE, URINE (UA) NEGATIVE (NEGATIVE); KETONES,URINE NEGATIVE (NEGATIVE); LEUKOCYTE ESTERASE ,URINE 1+ (NEGATIVE); NITRITE,URINE NEGATIVE (NEGATIVE); PH,URINE 5 (5-9); PROTEIN,URINE 2+ (NEGATIVE); UROBILINOGEN,URINE NORMAL (NORMAL)
[2018-05-03 13:12] LABS: BACTERIA,URINE TRACE /HPF; RBC,URINE RARE /HPF; SQUAMOUS EPITHELIAL CELL,UR RARE /HPF
[2018-05-03] MEDS ORDERED: cefTRIAXone FOR IV USE 1,000 MG in NS (IVPB) 50 ML IV ONE (13:30)
[2018-05-03] MEDS ORDERED: CEPH500T PO (14:09)
[2018-05-03] MEDS ORDERED: AMLO5TAB7 PO (14:09)
== END 2018-05-03 14:15 | disposition home or self-care (01) ==
LOC: EDUNIT# 10:33 → ER 10:34
DX: N39.0 Urinary tract infection, site not specified (principal); I10 Essential (primary) hypertension; E78.00 Pure hypercholesterolemia, unspecified; M10.9 Gout, unspecified; F03.90 Unspecified dementia, unspecified severity, without behavioral disturbance, psychotic disturbance, mood disturbance, and anxiety; Z79.82 Long term (current) use of aspirin; Z82.49 Family history of ischemic heart disease and other diseases of the circulatory system; Z86.73 Personal history of transient ischemic attack (TIA), and cerebral infarction without residual deficits; Z98.890 Other specified postprocedural states
CPT/HCPCS: 36415; 70450; 71045; 80053; 81000; 84484; 85025; 85379; 85610; 85730; 87077; 87088; 93005; 93041

== ENCOUNTER 2018-07-13 14:30 | Outpatient (RCR) | payer MEDICARE ==
[~2018-07-13 14:30] MED LIST changes: +AMLO5TAB9 PO; +CEPH500T PO
== END 2018-08-11 13:34 | disposition home or self-care (01) ==
PROVIDERS: ATTEND Internal Medicine
DX: I69.354 Hemiplegia and hemiparesis following cerebral infarction affecting left non-dominant side (principal); Z91.81 History of falling

== ENCOUNTER → 2020-01-03 | Outpatient (CLI) | payer MEDICARE | LOC: CARD 14:44 | PROVIDERS: ATTEND Internal Medicine Interventional Cardiology | DX: I44.30 Unspecified atrioventricular block (principal); I63.9 Cerebral infarction, unspecified; I10 Essential (primary) hypertension; I49.5 Sick sinus syndrome; Z95.0 Presence of cardiac pacemaker | CPT/HCPCS: 93306 ==

== ENCOUNTER 2020-08-11 14:14 | Emergency (ER) | payer OTHER, MEDICARE ==
[~2020-08-11] VITALS: Ht 185.4 cm; Wt 99.7 kg
[~2020-08-11 14:14] MED LIST changes: +AMLO-250 PO; -AMLO5TAB9 PO
--- NOTE | 2020-08-11 14:58 | ED General ---
General Chief Complaint: General Problems/Pain Stated Complaint: WEAKNESS, DIFFICULTY WALKING History of Present Illness Date Seen by Provider: Aug 11, 2020 Time Seen by Provider: 14:58 Initial Comments 85-year-old male presents with generalized weakness. Reportedly started during the night last night. Patient received his second Covid vaccine yesterday. I want to be sure that he does not have a urinary tract infection because he has had some increased urination over the last couple days. He is febrile upon arrival. He has just some generalized malaise. Normally he can walk with a walker but was weak and fell. No injuries from the fall. No nausea vomiting shortness of breath chest pain or other systemic complaints. Allergies and Home Medications Allergies Coded Allergies: No Known Drug Allergies (Unverified , 10/29/14) Home Medications Allopurinol 300 Mg Tab, 300 MG PO DAILY, (Reported) Amlodipine Besylate 5 Mg Tablet, 5 MG PO DAILY Prescribed by: HYUN POMPA on 05/03/18 1409 Aspirin 81 Mg Tablet., 81 MG PO BID Prescribed by: CALVIN GREEN on 11/08/14 1016 Atorvastatin 20 Mg Tablet, 20 MG PO 1700, (Reported) Cephalexin 500 Mg Tablet, 500 MG PO BID Prescribed by: HYUN POMPA on 05/03/18 1409 Docusate Sodium 100 Mg Cap, 100 MG PO DAILY Prescribed by: CALVIN GREEN on 11/08/14 1008 Labetalol Hcl 200 Mg Tablet, 200 MG PO BID, (Reported) Lisinopril 40 Mg Tablet, 40 MG PO DAILY, (Reported) [place]-3/Dha/Epa/Fish Oil 1 Each Capsule.dr, 1,400 MG PO DAILY, (Reported) Vit B12/Lm-Folate Ca/Vit B6/B2 1 Tab Tablet, 1 TAB PO DAILY, (Reported) [Amlodipine Besylate] 10 MG TABLET, 10 MG PO DAILY Prescribed by: CALVIN GREEN on 11/01/14 0801 Patient Home Medication List Home Medication List Reviewed: Yes Review of Systems Review of Systems Constitutional: fever, malaise, weakness EENTM: No no symptoms reported Respiratory: No no symptoms reported Cardiovascular: no symptoms reported Gastrointestinal: no symptoms reported Genitourinary: no symptoms reported Musculoskeletal: no symptoms reported Skin: no symptoms reported Psychiatric/Neurological: See HPI Hematologic/Lymphatic: No Symptoms Reported Past Kapjdjr-Rwbbsa-Zslonb Hx Past Med/Social Hx: Reviewed Nursing Past Med/Soc Hx Patient Social History Alcohol Beverage of Choice: Beer Type Used: Smokeless Tobacco 2nd Hand Smoke Exposure: No Recent Hopitalizations: No Immunizations Up To Date Tetanus Booster (TDap): Unknown Date of Pneumonia Vaccine: November 03, 2011 Seasonal Allergies Seasonal Allergies: No Past Medical History Surgeries: Yes (KNEE SURGERY-; LEFT ROTATOR CUFF REPAIR) Orthopedic Respiratory: No Cardiac: Yes High Cholesterol, Hypertension Neurological: Yes Dementia, Stroke, TIA Reproductive Disorders: No Sexually Transmitted Disease: No HIV/AIDS: No Gastrointestinal: No Musculoskeletal: Yes (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 8.0oz. 95.747639ki; BMI Method:Stated General Appearance: Mild Distress, Other (Generalized weakness) Respiratory: Lungs Clear, Normal Breath Sounds Cardiovascular: Regular Rate, Rhythm, No Edema Gastrointestinal: Non Tender, Soft Extremity: Normal Capillary Refill, Normal Range of Motion Neurologic/Psychiatric: Alert, No Motor/Sensory Deficits, cigar wrapper tender automatic II-XII Norm as Tested; No Motor Weakness Skin: Normal Color, Warm/Dry Focused Exam Lactate Level 08/11/20 15:00: Lactic Acid Level 1.32 Lactic Acid Level Laboratory Tests Test 08/11/20 15:00 Lactic Acid Level 1.32 MMOL/L (0.50-2.00) Progress/Results/Core Measures Suspected Sepsis SIRS Temperature: Pulse: Respiratory Rate: Laboratory Tests 08/11/20 14:58: White Blood Count 6.3 Blood Pressure / Mean: 08/11/20 15:00: Lactic Acid Level 1.32 Laboratory Tests 08/11/20 14:58: Creatinine 1.15, Platelet Count 213, Total Bilirubin 0.6 Results/Orders Lab Results Laboratory Tests Test 08/11/20 14:58 2/26/21 15:00 08/11/20 15:01 08/11/20 15:07 Range/Units White Blood Count 6.3 4.3-11.0 10^3/uL Red Blood Count 4.39 4.30-5.52 10^6/uL Hemoglobin 13.7 13.3-17.7 g/dL Hematocrit 41 40-54 % Mean Corpuscular Volume 93 80-99 fL Mean Corpuscular Hemoglobin 31 25-34 pg Mean Corpuscular Hemoglobin Concent 34 32-36 g/dL Red Cell Distribution Width 13.3 10.0-14.5 % Platelet Count 213 130-400 10^3/uL Mean Platelet Volume 10.5 9.0-12.2 fL Immature Granulocyte % (Auto) 0 % Neutrophils (%) (Auto) 80 H 42-75 % Lymphocytes (%) (Auto) 9 L 12-44 % Monocytes (%) (Auto) 10 0-12 % Eosinophils (%) (Auto) 1 0-10 % Basophils (%) (Auto) 0 0-10 % Neutrophils # (Auto) 5.1 1.8-7.8 10^3/uL Lymphocytes # (Auto) 0.5 L 1.0-4.0 10^3/uL Monocytes # (Auto) 0.6 0.0-1.0 10^3/uL Eosinophils # (Auto) 0.0 0.0-0.3 10^3/uL Basophils # (Auto) 0.0 0.0-0.1 10^3/uL Immature Granulocyte # (Auto) 0.0 0.0-0.1 10^3/uL Sodium Level 136 135-145 MMOL/L Potassium Level 4.1 3.6-5.0 MMOL/L Chloride Level 104 98-107 MMOL/L Carbon Dioxide Level 23 21-32 MMOL/L Anion Gap 9 5-14 MMOL/L Blood Urea Nitrogen 19 H 7-18 MG/DL Creatinine 1.15 0.60-1.30 MG/DL Estimat Glomerular Filtration Rate 60 BUN/Creatinine Ratio 17 Glucose Level 118 H 70-105 MG/DL Calcium Level 8.6 8.5-10.1 MG/DL Corrected Calcium 8.5 8.5-10.1 MG/DL Magnesium Level 1.7 1.6-2.4 MG/DL Total Bilirubin 0.6 0.1-1.0 MG/DL Aspartate Amino Transf (AST/SGOT) 15 5-34 U/L Alanine Aminotransferase (ALT/SGPT) 14 0-55 U/L Alkaline Phosphatase 81 40-136 U/L Troponin I < 0.028 <0.028 NG/ML Total Protein 7.2 6.4-8.2 GM/DL Albumin 4.1 3.2-4.5 GM/DL Lactic Acid Level 1.32 0.50-2.00 MMOL/L Glucometer 124 H 70-110 MG/DL Urine Color YELLOW Urine Clarity CLEAR Urine pH 6.0 5-9 Urine Specific [place] 1.025 H 1.016-1.022 Urine Protein 1+ H NEGATIVE Urine Glucose (UA) NEGATIVE NEGATIVE Urine Ketones NEGATIVE NEGATIVE Urine Nitrite NEGATIVE NEGATIVE Urine Bilirubin NEGATIVE NEGATIVE Urine Urobilinogen 0.2 < = 1.0 MG/DL Urine Leukocyte Esterase NEGATIVE NEGATIVE Urine RBC (Auto) 2+ H NEGATIVE Urine RBC 2-5 H /HPF Urine WBC 2-5 /HPF Urine Squamous Epithelial Cells 0-2 /HPF Urine Crystals NONE /LPF Urine Bacteria TRACE /HPF Urine Casts NONE /LPF Urine Mucus MODERATE H /LPF Urine Culture Indicated NO Micro Results Microbiology 08/11/20 Influenza Types A,B Antigen (CIELO) - Final, Complete My Orders Orders - SORAYA RICARDO DO Cbc With Automated Diff (08/11/20 14:58) Comprehensive Metabolic Panel (08/11/20 14:58) Lactic Acid Analyzer (08/11/20 14:58) Magnesium (08/11/20 14:58) Ua Culture If Indicated (08/11/20 14:58) Ed Iv/Invasive Line Start (08/11/20 14:58) Ns Iv 500 Ml (Sodium Chloride 0.9%) (08/11/20 15:00) Chest 1 View, Ap/Pa Only (08/11/20 14:58) Troponin I (08/11/20 14:58) Accucheck Stat ONCE (08/11/20 14:58) Ed Iv/Invasive Line Start (08/11/20 14:58) Ekg Tracing (08/11/20 14:58) Acetaminophen Tablet (Tylenol Tablet) (08/11/20 15:04) Influenza A And B Antigens (08/11/20 15:10) Medications Given in ED Current Medications Medications Dose Ordered Sig/Mark Route Start Time Stop Time Status Last Admin Dose Admin Acetaminophen 500 mg STK-MED ONCE .ROUTE 08/11/20 15:04 08/11/20 15:10 DC 08/11/20 15:11 1,000 MG Sodium Chloride 500 ml @ 0 mls/hr Q0M ONCE IV 08/11/20 15:00 08/11/20 15:01 DC 08/11/20 15:10 0 MLS/HR Vital Signs/I&O 08/11/20 14:51 Temp 38.9 Pulse 85 Resp 16 B/P (MAP) 194/85 (121) Pulse Ox 97 O2 Delivery Room Air Capillary Refill : Progress Note : Time: 16:26 Progress Note Patient symptoms are consistent with reaction to the Covid vaccine that he fell last night. Patient's fever likely from the vaccine reaction along with his generalized weakness. Patient with no acute urinary tract infection or other signs of acute infection. Patient stable discharged home. I recommend you use Tylenol ibuprofen for fever control. Patient follow-up next week if his symptoms are continuing or return to the ER over the weekend if they continue to worsen Departure Impression Primary Impression: Post-vaccination reaction Qualified Codes: T88.1XXA - Other complications following immunization, not elsewhere classified, initial encounter Disposition: 01 HOME, SELF-CARE Condition: Stable Departure-Patient Inst. Referrals: CALVIN GREEN MD (PCP/Family) Primary Care Physician Add. Discharge Instructions: Drink plenty of fluids, use your walker when ambulating. Tylenol or ibuprofen as needed for fevers Follow-up with your primary care provider next week for recheck of today's symptoms Return to the ER if symptoms worsen over the weekend or with other concerns All discharge instructions reviewed with patient and/or family. Voiced understanding. SORAYA RICARDO DO Aug 11, 2020 14:58
[2020-08-11] MEDS ORDERED: NS IV 500 ML 500 ML IV ONE (15:00)
[2020-08-11] MEDS ORDERED: ACETAMINOPHEN 500 MG TAB (TYLENOL) ONE (15:04)
[2020-08-11 15:27] LABS: BILIRUBIN,URINE NEGATIVE (NEGATIVE); CLARITY,URINE CLEAR; COLOR,URINE YELLOW; GLUCOSE, URINE (UA) NEGATIVE (NEGATIVE); KETONES,URINE NEGATIVE (NEGATIVE); LEUKOCYTE ESTERASE ,URINE NEGATIVE (NEGATIVE); NITRITE,URINE NEGATIVE (NEGATIVE); PROTEIN,URINE 1+ (NEGATIVE)
[2020-08-11 15:33] LABS: BACTERIA,URINE TRACE /HPF; SQUAMOUS EPITHELIAL CELL,UR 0-2 /HPF
[2020-08-11 15:38] LABS: ALBUMIN 4.1 GM/DL (3.2-4.5); CHLORIDE 104 MMOL/L (98-107); POTASSIUM 4.1 MMOL/L (3.6-5.0); SODIUM 136 MMOL/L (135-145)
[2020-08-11 15:39] LABS: CALCIUM 8.6 MG/DL (8.5-10.1)
[2020-08-11 15:40] LABS: GLUCOSE 118 MG/DL (70-105)
[2020-08-11 15:41] LABS: TOTAL PROTEIN 7.2 GM/DL (6.4-8.2)
[2020-08-11 15:42] LABS: BILIRUBIN,TOTAL 0.6 MG/DL (0.1-1.0); CARBON DIOXIDE 23 MMOL/L (21-32)
[2020-08-11 15:44] LABS: ALKALINE PHOSPHATASE 81 U/L (40-136); CREATININE SERUM 1.15 MG/DL (0.60-1.30); GFR ESTIMATED 60
[2020-08-11 15:45] LABS: BUN/CREATININE RATIO 17
[2020-08-11 15:47] LABS: ALANINE AMINOTRANSFERASE 14 U/L (0-55); MAGNESIUM 1.7 MG/DL (1.6-2.4)
[2020-08-11 15:50] LABS: BASOPHILS % (AUTO) 0 % (0-10); EOSINOPHILS % (AUTO) 1 % (0-10); HEMATOCRIT 41 % (40-54); HEMOGLOBIN 13.7 g/dL (13.3-17.7); LYMPHOCYTES # (AUTO) 0.5 10^3/uL (1.0-4.0); LYMPHOCYTES % (AUTO) 9 % (12-44); MEAN CORPUSCULAR HEMOGLOBIN 31 pg (25-34); MEAN CORPUSCULAR HGB CONC 34 g/dL (32-36); MEAN CORPUSCULAR VOLUME 93 fL (80-99); MEAN PLATELET VOLUME 10.5 fL (9.0-12.2); MONOCYTES # (AUTO) 0.6 10^3/uL (0.0-1.0); MONOCYTES % (AUTO) 10 % (0-12); NEUTROPHILS # (AUTO) 5.1 10^3/uL (1.8-7.8); NEUTROPHILS % (AUTO) 80 % (42-75); PLATELET COUNT 213 10^3/uL (130-400); WHITE BLOOD COUNT 6.3 10^3/uL (4.3-11.0)
--- NOTE | 2020-08-11 16:02 | Diagnostic Imaging Report ---
INDICATION: Weakness. COMPARISON: Comparison is made to prior examination of 05/03/2018. FINDINGS: Heart size is normal. Lungs are clear. There is no pleural fusion or pneumothorax. Mediastinum is unremarkable. Pacemaker overlies the left hemithorax. IMPRESSION: No acute cardiopulmonary abnormality. Dictated by: Dictated on workstation # [id number]
[2020-08-11 16:55] VITALS: BP 153/70
== END 2020-08-11 16:55 | disposition home or self-care (01) ==
LOC: EDUNIT# 14:14 → ER 14:16
DX: T88.1XXA Other complications following immunization, not elsewhere classified, initial encounter (principal); R53.1 Weakness; E78.00 Pure hypercholesterolemia, unspecified; I10 Essential (primary) hypertension; M10.9 Gout, unspecified; Z86.73 Personal history of transient ischemic attack (TIA), and cerebral infarction without residual deficits; Z82.49 Family history of ischemic heart disease and other diseases of the circulatory system; Z79.82 Long term (current) use of aspirin
CPT/HCPCS: 36415; 51701; 71045; 80053; 81000; 82962; 83605; 83735; 84484; 85025; 87804; 93005

== ENCOUNTER → 2021-01-31 | Outpatient (CLI) | payer MEDICARE ==
[~2021-01-31] MED LIST changes: +CATHETER FLUSH 10 ML SYR IV PRN; +REGADENOSON 0.4 MG/5 ML SYR (LEXISCAN) IV ONE
[2021-01-31 09:26] VITALS: BP 169/82
--- NOTE | 2021-01-31 12:17 | Cardiology Stress Test Report ---
Stress Test Report Date of Procedure/Referring: Date of Procedure: Jan 31, 2021 PCP Nessa Dejesus MD Admitting Physician Denilson Asencio MD Indications: HTN Baseline Heart Rate: 62 Baseline Blood Pressure: Blood Pressure Systolic: 169 Blood Pressure Diastolic: 82 Baseline Vitals Vital Signs Date Time Temp Pulse Resp B/P (MAP) Pulse Ox O2 Delivery O2 Flow Rate FiO2 01/31/21 09:26 61 18 169/82 (111) 98 Baseline EKG: Baseline EKG: NSR Summary After explaining the procedure to the patient, he signed a consent and then brought to the stress nuclear laboratory. Patient received 0.4 mg Lexiscan for stress test, ECG, heart rate and blood pressure were monitored continuously. Resting and stress dose of radio tracer were injected, imaging was acquired and reviewed in short axis, horizontal long axis and vertical long axis views. TID: 1.17 SSS: 2 SDS: 2 EF: 54 1. Patient tolerated Lexiscan well 2. Motion artifact affecting the quality of the images 3. No significant ischemia or infarction on SPECT images 4. Normal left ventricular size, EF 54% NESSA DEJESUS MD Jan 31, 2021 12:17
== END ==
LOC: CARD 08:00
PROVIDERS: ATTEND Internal Medicine Cardiovascular Disease
DX: I10 Essential (primary) hypertension (principal); I25.10 Atherosclerotic heart disease of native coronary artery without angina pectoris
CPT/HCPCS: 78452; 93017; A9502

== ENCOUNTER 2021-04-10 21:31 | Emergency (ER) | payer MEDICARE ==
[~2021-04-10 21:31] MED LIST changes: -CATHETER FLUSH 10 ML SYR IV PRN; -REGADENOSON 0.4 MG/5 ML SYR (LEXISCAN) IV ONE
--- NOTE | 2021-04-10 21:41 | ED General ---
General Chief Complaint: Altered Mental Status Stated Complaint: FALL Source of Information: Patient Exam Limitations: No Limitations (HUSSEIN LEAHY APRN) History of Present Illness Date Seen by Provider: Apr 10, 2021 Time Seen by Provider: 21:39 Initial Comments To ER by EMS from home with reports of a fall. He did strike the front of his head as a result of the fall. He complains of no pain is the result of the fall but was noted to have a temperature of 102 degrees on the ambulance (though upon arrival to ER it is 99) and has had increasing weakness over the past few days. He has had both Covid vaccines. Timing/Duration: 1-2 Days Severity: Moderate (HUSSEIN LEAHY APRN) Allergies and Home Medications Allergies Coded Allergies: No Known Drug Allergies (Unverified , 10/29/14) Patient Home Medication List Home Medication List Reviewed: Yes (HUSSEIN LEAHY APRN) Allopurinol (Zyloprim Tablet) 300 Mg Tab, 300 MG PO DAILY, (Reported) Entered as Reported by: YOLANDA VASQUEZ on 10/29/141937 Amlodipine Besylate (Amlodipine Besylate) 5 Mg Tablet, 5 MG PO DAILY Prescribed by: HYUN POMPA on 05/03/18 1409 Aspirin (Aspir 81) 81 Mg Tablet.dr, 81 MG PO BID Prescribed by: CALVIN GREEN on 11/08/14 1016 Atorvastatin (Lipitor Tablet) 20 Mg Tablet, 20 MG PO 1700, (Reported) Entered as Reported by: YOLANDA VASQUEZ on 10/29/141937 Cephalexin (Cephalexin) 500 Mg Tablet, 500 MG PO BID Prescribed by: HYUN POMPA on 05/03/18 1409 Docusate Sodium (Colace) 100 Mg Cap, 100 MG PO DAILY Prescribed by: CALVIN GREEN on 11/08/14 1008 Labetalol Hcl (Labetolol) 200 Mg Tablet, 200 MG PO BID, (Reported) Entered as Reported by: YOLANDA VASQUEZ on 10/29/141937 Lisinopril (Prinivil) 40 Mg Tablet, 40 MG PO DAILY, (Reported) Entered as Reported by: YOLANDA VASQUEZ on 10/29/141937 [place]-3/Dha/Epa/Fish Oil (Fish Oil 1,400 Mg Softgel) 1 Each Capsule.dr, 1,400 MG PO DAILY, (Reported) Entered as Reported by: YOLANDA VASQUEZ on 10/29/14 1938 Vit B12/Lm-Folate Ca/Vit B6/B2 (Cerefolin Tablet) 1 Tab Tablet, 1 TAB PO DAILY, (Reported) Entered as Reported by: CHELLY STOKES on 10/31/14 1059 [Amlodipine Besylate] 10 MG TABLET, 10 MG PO DAILY Prescribed by: CALVIN GREEN on 11/01/14 0801 Review of Systems Review of Systems Constitutional: see HPI, weakness EENTM: see HPI Respiratory: see HPI, cough Cardiovascular: no symptoms reported Genitourinary: no symptoms reported Musculoskeletal: no symptoms reported Skin: no symptoms reported Psychiatric/Neurological: No Symptoms Reported Hematologic/Lymphatic: No Symptoms Reported Immunological/Allergic: no symptoms reported (HUSSEIN LEAHY APRN) Past Uvufgec-Eczhst-Bgensf Hx Immunizations Up To Date Tetanus Booster (TDap): Unknown (HUSSEIN LEAHY APRN) Seasonal Allergies Seasonal Allergies: No (HUSSEIN LEAHY APRN) Past Medical History Surgeries: Yes (KNEE SURGERY-; LEFT ROTATOR CUFF REPAIR) Orthopedic Respiratory: No Cardiac: Yes High Cholesterol, Hypertension Neurological: Yes Dementia, Stroke, TIA Reproductive Disorders: No Sexually Transmitted Disease: No HIV/AIDS: No Gastrointestinal: No Musculoskeletal: Yes (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 8.0oz. 95.919476we; 29.00 BMI Method:Stated General Appearance: No Apparent Distress, WD/WN, Other (Alert and oriented GCS 15) Eyes: Bilateral Eye Normal Inspection, Bilateral Eye PERRL, Bilateral Eye EOMI Neck: Full Range of Motion, Normal Inspection Respiratory: Lungs Clear, Normal Breath Sounds, No Accessory Muscle Use, No Respiratory Distress Cardiovascular: Regular Rate, Rhythm, Normal Peripheral Pulses Gastrointestinal: Normal Bowel Sounds, Non Tender, Soft Extremity: Normal Capillary Refill, Normal Inspection Neurologic/Psychiatric: Alert, Oriented x3 Skin: Normal Color, Warm/Dry (HUSSEIN LEAHY APRN) Focused Exam Lactate Level 04/10/21 21:40: Lactic Acid Level 1.31 (ZEHRA HERNANDEZ MD) Lactic Acid Level Laboratory Tests Test 04/10/21 21:40 Lactic Acid Level 1.31 MMOL/L (0.50-2.00) (ZEHRA HERNANDEZ MD) Progress/Results/Core Measures Suspected Sepsis SIRS Temperature: Pulse: Respiratory Rate: Laboratory Tests 04/10/21 21:40: White Blood Count 5.9 Blood Pressure / Mean: 04/10/21 21:40: Lactic Acid Level 1.31 Laboratory Tests 04/10/21 21:40: Creatinine 1.24, INR Comment 1.2, Platelet Count 224, Total Bilirubin 0.4 (HUSSEIN LEAHY APRN) Results/Orders Lab Results Laboratory Tests Test 04/10/21 21:40 04/10/21 22:47 Range/Units White Blood Count 5.9 4.3-11.0 10^3/uL Red Blood Count 4.19 L 4.30-5.52 10^6/uL Hemoglobin 13.2 L 13.3-17.7 g/dL Hematocrit 39 L 40-54 % Mean Corpuscular Volume 93 80-99 fL Mean Corpuscular Hemoglobin 32 25-34 pg Mean Corpuscular Hemoglobin Concent 34 32-36 g/dL Red Cell Distribution Width 13.4 10.0-14.5 % Platelet Count 224 130-400 10^3/uL Mean Platelet Volume 10.0 9.0-12.2 fL Immature Granulocyte % (Auto) 1 % Neutrophils (%) (Auto) 82 H 42-75 % Lymphocytes (%) (Auto) 7 L 12-44 % Monocytes (%) (Auto) 10 0-12 % Eosinophils (%) (Auto) 0 0-10 % Basophils (%) (Auto) 0 0-10 % Neutrophils # (Auto) 4.9 1.8-7.8 10^3/uL Lymphocytes # (Auto) 0.4 L 1.0-4.0 10^3/uL Monocytes # (Auto) 0.6 0.0-1.0 10^3/uL Eosinophils # (Auto) 0.0 0.0-0.3 10^3/uL Basophils # (Auto) 0.0 0.0-0.1 10^3/uL Immature Granulocyte # (Auto) 0.0 0.0-0.1 10^3/uL Neutrophils % (Manual) 81 % Lymphocytes % (Manual) 8 % Monocytes % (Manual) 10 % Eosinophils % (Manual) 1 % Blood Morphology Comment NORMAL Prothrombin Time 15.4 H 12.2-14.7 SEC INR Comment 1.2 0.8-1.4 Activated Partial Thromboplast Time 34 24-35 SEC Sodium Level 137 135-145 MMOL/L Potassium Level 4.0 3.6-5.0 MMOL/L Chloride Level 106 98-107 MMOL/L Carbon Dioxide Level 20 L 21-32 MMOL/L Anion Gap 11 5-14 MMOL/L Blood Urea Nitrogen 16 7-18 MG/DL Creatinine 1.24 0.60-1.30 MG/DL Estimat Glomerular Filtration Rate 55 BUN/Creatinine Ratio 13 Glucose Level 131 H 70-105 MG/DL Lactic Acid Level 1.31 0.50-2.00 MMOL/L Calcium Level 8.5 8.5-10.1 MG/DL Corrected Calcium 8.7 8.5-10.1 MG/DL Total Bilirubin 0.4 0.1-1.0 MG/DL Aspartate Amino Transf (AST/SGOT) 17 5-34 U/L Alanine Aminotransferase (ALT/SGPT) 15 0-55 U/L Alkaline Phosphatase 69 40-136 U/L Total Protein 6.3 L 6.4-8.2 GM/DL Albumin 3.7 3.2-4.5 GM/DL Influenza Type A (RT-PCR) Not Detected Not Detecte Influenza Type B (RT-PCR) Not Detected Not Detecte SARS-CoV-2 RNA (RT-PCR) Not Detected Not Detecte Urine Color YELLOW Urine Clarity CLEAR Urine pH 7.0 5-9 Urine Specific [place] 1.015 L 1.016-1.022 Urine Protein TRACE H NEGATIVE Urine Glucose (UA) NEGATIVE NEGATIVE Urine Ketones NEGATIVE NEGATIVE Urine Nitrite NEGATIVE NEGATIVE Urine Bilirubin NEGATIVE NEGATIVE Urine Urobilinogen 0.2 < = 1.0 MG/DL Urine Leukocyte Esterase NEGATIVE NEGATIVE Urine RBC (Auto) TRACE-I H NEGATIVE Urine RBC 0-2 /HPF Urine WBC 0-2 /HPF Urine Squamous Epithelial Cells NONE /HPF Urine Renal Epithelial Cells NONE /HPF Urine Crystals NONE /LPF Urine Bacteria NEGATIVE /HPF Urine Casts NONE /LPF Urine Mucus NEGATIVE /LPF Urine Culture Indicated CULTURE PENDING (ZEHRA HERNANDEZ MD) Micro Results Microbiology 04/10/21 Blood Culture - Preliminary, Resulted No growth 04/10/21 Blood Culture - Preliminary, Resulted No growth (ZEHRA HERNANDEZ MD) Vital Signs/I&O 04/10/21 04/10/21 21:33 23:34 Temp 37.5 37.5 Pulse 81 70 Resp 16 16 B/P (MAP) 146/74 (98) 147/67 Pulse Ox 95 98 O2 Delivery Room Air Room Air (ZEHRA HERNANDEZ MD) Vital Signs/I&O Capillary Refill : (HUSSEIN LEAHY APRN) Departure Impression Primary Impression: General weakness Additional Impression: Fall at home Disposition: 01 HOME, SELF-CARE Condition: Stable Departure-Patient Inst. Decision time for Depature: 23:08 (HUSSEIN LEAHY APRN) Referrals: CALVIN GREEN MD (PCP/Family) Primary Care Physician Patient Instructions: Preventing Falls ED ATTENDING PHYSICIAN NOTE: I was physically present as attending physician in the emergency department during the care of this patient, but I was not directly involved in the decision making or delivery of care for this patient. (ZEHRA HERNANDEZ MD) HUSSEIN LEAHY APRN Apr 10, 2021 21:41 ZEHRA HERNANDEZ MD Apr 12, 2021 12:13
[2021-04-10 21:48] LABS: BASOPHILS % (AUTO) 0 % (0-10); EOSINOPHILS % (AUTO) 0 % (0-10); HEMATOCRIT 39 % (40-54); HEMOGLOBIN 13.2 g/dL (13.3-17.7); LYMPHOCYTES # (AUTO) 0.4 10^3/uL (1.0-4.0); LYMPHOCYTES % (AUTO) 7 % (12-44); MEAN CORPUSCULAR HEMOGLOBIN 32 pg (25-34); MEAN CORPUSCULAR HGB CONC 34 g/dL (32-36); MEAN CORPUSCULAR VOLUME 93 fL (80-99); MONOCYTES # (AUTO) 0.6 10^3/uL (0.0-1.0); MONOCYTES % (AUTO) 10 % (0-12); NEUTROPHILS # (AUTO) 4.9 10^3/uL (1.8-7.8); NEUTROPHILS % (AUTO) 82 % (42-75); PLATELET COUNT 224 10^3/uL (130-400); WHITE BLOOD COUNT 5.9 10^3/uL (4.3-11.0)
[2021-04-10 21:58] LABS: INR 1.2 (0.8-1.4); PROTHROMBIN TIME PATIENT 15.4 SEC (12.2-14.7)
[2021-04-10 22:04] LABS: ALBUMIN 3.7 GM/DL (3.2-4.5)
[2021-04-10 22:06] LABS: CALCIUM 8.5 MG/DL (8.5-10.1)
[2021-04-10 22:07] LABS: TOTAL PROTEIN 6.3 GM/DL (6.4-8.2)
[2021-04-10 22:09] LABS: BILIRUBIN,TOTAL 0.4 MG/DL (0.1-1.0)
[2021-04-10 22:11] LABS: CREATININE SERUM 1.24 MG/DL (0.60-1.30)
--- NOTE | 2021-04-10 22:13 | Diagnostic Imaging Report ---
PROCEDURE: CT head and CT cervical spine without contrast. TECHNIQUE: Multiple contiguous axial images were obtained through the brain and cervical spine without the use of intravenous contrast. Sagittal and coronal reformations through the cervical spine were then performed. Auto Exposure Controls were utilized during the CT exam to meet ALARA standards for radiation dose reduction. INDICATION: Fall. Altered mental status. Comparison made to prior CT of the head from May 03, 2018. FINDINGS: The CT of the head demonstrates no evidence of acute intracranial hemorrhage. There are no findings of an abnormal extra-axial fluid collection. There is age-related global volume loss with some mild associated ventriculomegaly. There are no findings of intracranial mass effect or shift or findings of hydrocephalus. Jamil and white matter differentiation are maintained. There is no evidence of vasogenic edema. The basilar cisterns are patent. The posterior fossa demonstrates no acute process. The mastoid air cells are clear. There is no fluid level within the paranasal sinuses. Orbital contents are unremarkable. No acute calvarial fracture evident. Cervical spine demonstrates multilevel cervical degenerative disc disease and facet arthropathy, most advanced at C5-C6 and C6-C7. Craniocervical junction relationships are maintained. The lateral masses of C1 and C2 demonstrate normal relationships. The facets are normally aligned. There is no facet joint or disc space widening. The vertebral body heights are maintained. There is no acute cervical spine fracture or evidence of traumatic malalignment. The lung apices are clear. The soft tissues of the neck demonstrate no acute process. Note is made of a mass within the left parotid gland measuring 1.5 cm. IMPRESSION: 1. No CT evidence of an acute intracranial abnormality. Age-related global volume loss present. 2. No calvarial fracture 3. Background degenerative features within the cervical spine without evidence of an acute fracture or traumatic malalignment 4. Nonspecific mass within the left parotid gland. Dictated by: Dictated on workstation # [id number]
--- NOTE | 2021-04-10 22:14 | Diagnostic Imaging Report ---
INDICATION: Sepsis. Frontal chest obtained at 09:50 p.m. and compared to 08/11/2020. The heart and mediastinal silhouette are normal in appearance. Pacemaker is unchanged. There is no focal infiltrate or pneumothorax or pleural fluid. IMPRESSION: No acute process in the chest. Dictated by: Dictated on workstation # [id number]
[2021-04-10 22:18] LABS: EOSINOPHILS % (MANUAL) 1 %; LYMPHOCYTES % (MANUAL) 8 %; MONOCYTES % (MANUAL) 10 %; NEUTROPHILS % (MANUAL) 81 %; RBC MORPH NORMAL
[2021-04-10 22:54] LABS: BILIRUBIN,URINE NEGATIVE (NEGATIVE); CLARITY,URINE CLEAR; COLOR,URINE YELLOW; GLUCOSE, URINE (UA) NEGATIVE (NEGATIVE); KETONES,URINE NEGATIVE (NEGATIVE); LEUKOCYTE ESTERASE ,URINE NEGATIVE (NEGATIVE); NITRITE,URINE NEGATIVE (NEGATIVE); PROTEIN,URINE TRACE (NEGATIVE)
[2021-04-10 22:59] LABS: BACTERIA,URINE NEGATIVE /HPF; RBC,URINE 0-2 /HPF; WBC,URINE 0-2 /HPF
[2021-04-10 23:34] VITALS: BP 147/67
== END 2021-04-10 23:34 | disposition home or self-care (01) ==
LOC: EDUNIT# 21:31 → ER 21:32
DX: R53.1 Weakness (principal); I10 Essential (primary) hypertension; F03.90 Unspecified dementia, unspecified severity, without behavioral disturbance, psychotic disturbance, mood disturbance, and anxiety; M10.9 Gout, unspecified; E78.00 Pure hypercholesterolemia, unspecified; Z20.822 Contact with and (suspected) exposure to COVID-19; Z86.73 Personal history of transient ischemic attack (TIA), and cerebral infarction without residual deficits; Z79.899 Other long term (current) drug therapy; Z79.82 Long term (current) use of aspirin
CPT/HCPCS: 36415; 70450; 71045; 72125; 80053; 81000; 83605; 85007; 85027; 85610; 85730; 87040; 87088; 87636

== ENCOUNTER 2021-04-24 09:02 | Emergency (ER) | payer MEDICARE ==
[~2021-04-24] VITALS: Ht 185.4 cm; Wt 99.7 kg
--- NOTE | 2021-04-24 10:01 | ED General ---
General Chief Complaint: General Problems/Pain Stated Complaint: WEAKNESS Nursing Triage Note: arrives this am via ems to room 2 with a c/o weakness after having a flu shot yesterday. family reports patient had a low grade fever and states last time he had a flu shot he neede some fluids to feel better. Source of Information: Patient, Caregiver Exam Limitations: No Limitations History of Present Illness Date Seen by Provider: Apr 24, 2021 Time Seen by Provider: 09:50 Initial Comments Patient is an 85-year-old male who presents to the emergency department with his today with a chief complaint of generalized weakness. His provides the history of present illness, review of systems, past medical family and social history as the patient has recently been diagnosed with dementia and is at times fairly confused. She states that he was so weak this morning she could not get him out of bed. He did see his primary care doctor, Dr. Asencio yesterday and received his flu shot. He is able to tell me that he does not currently have a headache or sore throat. He has not had any chest pain or shortness of breath. He is not nauseated. His states bowel and bladder has been functioning normally. He recently got over a prostate infection and finished antibiotics several days ago. She states that his appetite is pretty good. He has had several falls in recent weeks and she has a great degree of difficulty getting him up when he falls. They do not have in-home health care or any type of assistance. The tells me he has a follow-up appointment next week with Dr. Asencio in order to try and arrange a safer living environment. All other review of systems reviewed and negative except as stated. Timing/Duration: Constant, Getting Worse Associated Systoms: Denies Symptoms Allergies and Home Medications Allergies Coded Allergies: No Known Drug Allergies (Unverified , 10/29/14) Patient Home Medication List Home Medication List Reviewed: Yes Allopurinol (Zyloprim Tablet) 300 Mg Tab, 300 MG PO DAILY, (Reported) Entered as Reported by: YOLANDA VASQUEZ on 10/29/141937 Amlodipine Besylate (Amlodipine Besylate) 5 Mg Tablet, 5 MG PO DAILY Prescribed by: HYUN POMPA on 05/03/18 1409 Aspirin (Aspir 81) 81 Mg Tablet.dr, 81 MG PO BID Prescribed by: CALVIN ASENCIO on 11/08/14 1016 Atorvastatin (Lipitor Tablet) 20 Mg Tablet, 20 MG PO 1700, (Reported) Entered as Reported by: YOLANDA VASQUEZ on 10/29/141937 Cephalexin (Cephalexin) 500 Mg Tablet, 500 MG PO BID Prescribed by: HYUN POMPA on 05/03/18 1409 Docusate Sodium (Colace) 100 Mg Cap, 100 MG PO DAILY Prescribed by: CALVIN ASENCIO on 11/08/14 1008 Labetalol Hcl (Labetolol) 200 Mg Tablet, 200 MG PO BID, (Reported) Entered as Reported by: YOLANDA VASQUEZ on 10/29/141937 Lisinopril (Prinivil) 40 Mg Tablet, 40 MG PO DAILY, (Reported) Entered as Reported by: YOLANDA VASQUEZ on 10/29/141937 [place]-3/Dha/Epa/Fish Oil (Fish Oil 1,400 Mg Softgel) 1 Each Capsule.dr, 1,400 MG PO DAILY, (Reported) Entered as Reported by: YOLANDA VASQUEZ on 10/29/141937 Vit B12/Lm-Folate Ca/Vit B6/B2 (Cerefolin Tablet) 1 Tab Tablet, 1 TAB PO DAILY, (Reported) Entered as Reported by: CHELLY STOKES on 10/31/14 1059 [Amlodipine Besylate] 10 MG TABLET, 10 MG PO DAILY Prescribed by: CALVIN ASENCIO on 11/01/14 0801 Review of Systems Review of Systems Constitutional: see HPI EENTM: no symptoms reported Respiratory: no symptoms reported Cardiovascular: no symptoms reported Gastrointestinal: no symptoms reported Genitourinary: no symptoms reported Musculoskeletal: no symptoms reported Skin: no symptoms reported Psychiatric/Neurological: Other (Generalized weakness per the ) All Other Systems Reviewed Negative Unless Noted: Yes Past Yiblxrb-Zywvvb-Myftwc Hx Immunizations Up To Date Tetanus Booster (TDap): Unknown First/Initial COVID19 Vaccinat: 08/11/20 Second COVID19 Vaccination Antonio: 08/11/20 Seasonal Allergies Seasonal Allergies: No Past Medical History Surgeries: Yes (KNEE SURGERY-; LEFT ROTATOR CUFF REPAIR) Orthopedic Respiratory: No Cardiac: Yes High Cholesterol, Hypertension Neurological: Yes Dementia, Stroke, TIA Reproductive Disorders: No Sexually Transmitted Disease: No HIV/AIDS: No Gastrointestinal: No Musculoskeletal: Yes (LEFT SIDE 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 8.0oz. 95.263425id; 29.00 BMI Method:Stated General Appearance: No Apparent Distress, WD/WN Eyes: Bilateral Eye Normal Inspection, Bilateral Eye PERRL, Bilateral Eye EOMI HEENT: PERRL/EOMI Neck: Normal Inspection Respiratory: Lungs Clear, Normal Breath Sounds, No Accessory Muscle Use, No Respiratory Distress Cardiovascular: Regular Rate, Rhythm, Normal Peripheral Pulses Gastrointestinal: Non Tender, Soft Extremity: Normal Capillary Refill, Normal Inspection, Normal Range of Motion, No Calf Tenderness Neurologic/Psychiatric: Alert, No Motor/Sensory Deficits, Normal Mood/Affect, Other (Pleasantly confused) Skin: Normal Color, Warm/Dry Progress/Results/Core Measures Suspected Sepsis SIRS Temperature: Pulse: 67 Respiratory Rate: 18 Laboratory Tests 04/24/21 09:20: White Blood Count 5.4 Blood Pressure 167 /77 Mean: 107 Laboratory Tests 04/24/21 09:20: Creatinine 0.98, Platelet Count 256, Total Bilirubin 0.9 Results/Orders Lab Results Laboratory Tests Test 04/24/21 09:20 04/24/21 11:00 Range/Units White Blood Count 5.4 4.3-11.0 10^3/uL Red Blood Count 3.83 L 4.30-5.52 10^6/uL Hemoglobin 12.2 L 13.3-17.7 g/dL Hematocrit 36 L 40-54 % Mean Corpuscular Volume 93 80-99 fL Mean Corpuscular Hemoglobin 32 25-34 pg Mean Corpuscular Hemoglobin Concent 34 32-36 g/dL Red Cell Distribution Width 13.9 10.0-14.5 % Platelet Count 256 130-400 10^3/uL Mean Platelet Volume 10.1 9.0-12.2 fL Immature Granulocyte % (Auto) 1 % Neutrophils (%) (Auto) 77 H 42-75 % Lymphocytes (%) (Auto) 11 L 12-44 % Monocytes (%) (Auto) 10 0-12 % Eosinophils (%) (Auto) 1 0-10 % Basophils (%) (Auto) 0 0-10 % Neutrophils # (Auto) 4.1 1.8-7.8 10^3/uL Lymphocytes # (Auto) 0.6 L 1.0-4.0 10^3/uL Monocytes # (Auto) 0.6 0.0-1.0 10^3/uL Eosinophils # (Auto) 0.1 0.0-0.3 10^3/uL Basophils # (Auto) 0.0 0.0-0.1 10^3/uL Immature Granulocyte # (Auto) 0.0 0.0-0.1 10^3/uL Sodium Level 139 135-145 MMOL/L Potassium Level 3.7 3.6-5.0 MMOL/L Chloride Level 108 H 98-107 MMOL/L Carbon Dioxide Level 22 21-32 MMOL/L Anion Gap 9 5-14 MMOL/L Blood Urea Nitrogen 16 7-18 MG/DL Creatinine 0.98 0.60-1.30 MG/DL Estimat Glomerular Filtration Rate 73 BUN/Creatinine Ratio 16 Glucose Level 97 70-105 MG/DL Calcium Level 8.0 L 8.5-10.1 MG/DL Corrected Calcium 8.4 L 8.5-10.1 MG/DL Total Bilirubin 0.9 0.1-1.0 MG/DL Aspartate Amino Transf (AST/SGOT) 17 5-34 U/L Alanine Aminotransferase (ALT/SGPT) 12 0-55 U/L Alkaline Phosphatase 66 40-136 U/L C-Reactive Protein High Sensitivity 0.84 H 0.00-0.50 MG/DL Total Protein 5.9 L 6.4-8.2 GM/DL Albumin 3.5 3.2-4.5 GM/DL Urine Color YELLOW Urine Clarity CLEAR Urine pH 7.0 5-9 Urine Specific [place] 1.015 L 1.016-1.022 Urine Protein NEGATIVE NEGATIVE Urine Glucose (UA) NEGATIVE NEGATIVE Urine Ketones NEGATIVE NEGATIVE Urine Nitrite NEGATIVE NEGATIVE Urine Bilirubin NEGATIVE NEGATIVE Urine Urobilinogen 0.2 < = 1.0 MG/DL Urine Leukocyte Esterase TRACE H NEGATIVE Urine RBC (Auto) NEGATIVE NEGATIVE Urine RBC RARE /HPF Urine WBC 0-2 /HPF Urine Squamous Epithelial Cells RARE /HPF Urine Crystals NONE /LPF Urine Bacteria TRACE /HPF Urine Casts NONE /LPF Urine Mucus RARE /LPF Urine Culture Indicated NO My Orders Orders - LION KWON MD Ed Iv/Invasive Line Start (04/24/21 10:01) Cbc With Automated Diff (04/24/21 10:01) Comprehensive Metabolic Panel (04/24/21 10:01) Ua Culture If Indicated (04/24/21 10:01) Chest 1 View, Ap/Pa Only (04/24/21 10:01) Hs C Reactive Protein (04/24/21 10:01) Ns Iv 500 Ml (Sodium Chloride 0.9%) (04/24/21 10:15) Account Support Analyst Consult (04/24/21 11:45) Vital Signs/I&O 04/24/21 09:10 Pulse 67 Resp 18 B/P (MAP) 167/77 (107) Pulse Ox 97 Capillary Refill : Less Than 3 Seconds Blood Pressure Mean: 107 Progress Note : Time: 13:45 Progress Note Patient's labs have been reviewed, imaging, urinalysis everything is within normal limits. Patient has no signs or symptoms of infection. His vital signs have been stable. I talked with psychiatric social worker they were able to arrange emergent placement at [facility], the intake nurse came over and as sessed him and orders have been written. Patient will be transferred to [facility] Diagnostic Imaging Diagonstic Imaging: Xray Plain Films/CT/US/NM/MRI: chest Comments [facility], [place] NAME: CARLOS SHORE [facility] REC#: [id number] PT STATUS: REG ER : 1935 PHYSICIAN: LION KWON MD ADMIT DATE: 04/24/21/ER Signed Date of Exam:04/24/21 CHEST 1 VIEW, AP/PA ONLY EXAMINATION: Chest 1 view HISTORY: generalized weakness COMPARISON: 04/10/2021 FINDINGS: Heart size and pulmonary vasculature are normal. The lungs are clear without consolidation, pleural effusion, or pneumothorax. Degenerative changes of the thoracic spine. Osseous structures are otherwise intact. Left-sided cardiac device is unchanged. IMPRESSION: 1. No acute radiographic abnormality in the chest. Dictated by: Dictated on workstation # [id number] Dict: 04/24/21 1032 Trans: 04/24/21 1039 [id number] Interpreted by: SHAZIA SANTOS DO Electronically signed by: SHAZIA SANTOS DO 04/24/21 1039 Departure Impression Primary Impression: Generalized weakness Additional Impression: Dementia Qualified Codes: F03.90 - Unspecified dementia without behavioral disturbance Disposition: 03 XFER SNF Condition: Stable Departure-Patient Inst. Decision time for Depature: 13:51 Referrals: CALVIN ASENCIO MD (PCP/Family) Primary Care Physician Patient Instructions: Generalized Weakness (DC) Add. Discharge Instructions: Continue his current medications as prescribed by his family doctor. Encourage fluids so that he stays well-hydrated. Fall precautions. Patient is ambulatory with a walker. Return to the emergency room for any new, concerning or emergent complaints. Copy Copies To 1: CALVIN ASENCIO MD, KATHRYN M MD Apr 24, 2021 10:01
[2021-04-24 10:08] LABS: BASOPHILS % (AUTO) 0 % (0-10); EOSINOPHILS # (AUTO) 0.1 10^3/uL (0.0-0.3); EOSINOPHILS % (AUTO) 1 % (0-10); HEMATOCRIT 36 % (40-54); HEMOGLOBIN 12.2 g/dL (13.3-17.7); LYMPHOCYTES # (AUTO) 0.6 10^3/uL (1.0-4.0); LYMPHOCYTES % (AUTO) 11 % (12-44); MEAN CORPUSCULAR HEMOGLOBIN 32 pg (25-34); MEAN CORPUSCULAR HGB CONC 34 g/dL (32-36); MEAN CORPUSCULAR VOLUME 93 fL (80-99); MEAN PLATELET VOLUME 10.1 fL (9.0-12.2); MONOCYTES # (AUTO) 0.6 10^3/uL (0.0-1.0); MONOCYTES % (AUTO) 10 % (0-12); NEUTROPHILS # (AUTO) 4.1 10^3/uL (1.8-7.8); NEUTROPHILS % (AUTO) 77 % (42-75); PLATELET COUNT 256 10^3/uL (130-400); WHITE BLOOD COUNT 5.4 10^3/uL (4.3-11.0)
[2021-04-24] MEDS: NS IV 500 ML 500 ML IV SCH ×2 (10:12→12:59)
[2021-04-24 10:13] LABS: ALBUMIN 3.5 GM/DL (3.2-4.5); POTASSIUM 3.7 MMOL/L (3.6-5.0)
[2021-04-24 10:16] LABS: TOTAL PROTEIN 5.9 GM/DL (6.4-8.2)
[2021-04-24 10:18] LABS: BILIRUBIN,TOTAL 0.9 MG/DL (0.1-1.0)
[2021-04-24 10:20] LABS: CREATININE SERUM 0.98 MG/DL (0.60-1.30)
--- NOTE | 2021-04-24 10:33 | Diagnostic Imaging Report ---
EXAMINATION: Chest 1 view HISTORY: generalized weakness COMPARISON: 04/10/2021 FINDINGS: Heart size and pulmonary vasculature are normal. The lungs are clear without consolidation, pleural effusion, or pneumothorax. Degenerative changes of the thoracic spine. Osseous structures are otherwise intact. Left-sided cardiac device is unchanged. IMPRESSION: 1. No acute radiographic abnormality in the chest. Dictated by: Dictated on workstation # [id number]
[2021-04-24 11:11] LABS: BILIRUBIN,URINE NEGATIVE (NEGATIVE); CLARITY,URINE CLEAR; COLOR,URINE YELLOW; GLUCOSE, URINE (UA) NEGATIVE (NEGATIVE); KETONES,URINE NEGATIVE (NEGATIVE); LEUKOCYTE ESTERASE ,URINE TRACE (NEGATIVE); NITRITE,URINE NEGATIVE (NEGATIVE); PROTEIN,URINE NEGATIVE (NEGATIVE)
[2021-04-24 11:32] LABS: BACTERIA,URINE TRACE /HPF; RBC,URINE RARE /HPF; SQUAMOUS EPITHELIAL CELL,UR RARE /HPF; WBC,URINE 0-2 /HPF
[2021-04-24 14:30] VITALS: BP 168/82
== END 2021-04-24 14:33 ==
LOC: EDUNIT# 09:02 → ER 09:03
DX: R53.1 Weakness (principal); F03.90 Unspecified dementia, unspecified severity, without behavioral disturbance, psychotic disturbance, mood disturbance, and anxiety; I10 Essential (primary) hypertension; E78.00 Pure hypercholesterolemia, unspecified; M10.9 Gout, unspecified; Z86.73 Personal history of transient ischemic attack (TIA), and cerebral infarction without residual deficits; Z79.82 Long term (current) use of aspirin; Z79.899 Other long term (current) drug therapy
CPT/HCPCS: 36415; 71045; 80053; 81000; 85025; 86141

== ENCOUNTER → 2021-05-16 | Outpatient (CLI) | payer MEDICARE | LOC: WOUNDCARE 13:57 | PROVIDERS: ATTEND Family Medicine | DX: L89.892 Pressure ulcer of other site, stage 2 (principal); L03.116 Cellulitis of left lower limb; M20.42 Other hammer toe(s) (acquired), left foot; I89.0 Lymphedema, not elsewhere classified | CPT/HCPCS: 99214 ==

== ENCOUNTER → 2021-05-25 | Outpatient (CLI) | payer MEDICARE | LOC: WOUNDCARE 09:07 | PROVIDERS: ATTEND Family Medicine | DX: L89.892 Pressure ulcer of other site, stage 2 (principal); L03.116 Cellulitis of left lower limb; I89.0 Lymphedema, not elsewhere classified; M20.42 Other hammer toe(s) (acquired), left foot; I96 Gangrene, not elsewhere classified | CPT/HCPCS: 99212 ==

== ENCOUNTER → 2021-06-01 | Outpatient (CLI) | payer MEDICARE | LOC: WOUNDCARE 10:32 | PROVIDERS: ATTEND Family Medicine | DX: L89.92 Pressure ulcer of unspecified site, stage 2 (principal); M20.42 Other hammer toe(s) (acquired), left foot; I89.0 Lymphedema, not elsewhere classified | CPT/HCPCS: 99212 ==

== ENCOUNTER → 2022-10-02 | Outpatient (CLI) | payer MEDICARE | LOC: CARD 14:03 | PROVIDERS: ATTEND Internal Medicine Cardiovascular Disease | DX: I11.9 Hypertensive heart disease without heart failure (principal) | CPT/HCPCS: 93306 ==

== ENCOUNTER 2023-02-07 16:47 | Emergency (ER) | payer MEDICARE ==
[~2023-02-07] VITALS: Ht 185.5 cm; Wt 99.8 kg
--- NOTE | 2023-02-07 17:10 | ED Hip Pain/Injury ---
General Chief Complaint: Hip/Pelvic Problems Stated Complaint: FALL/RT HIP PAIN Nursing Triage Note: PT TO ROOM BY [facility]. PT NURSE IN ROOM DURING TRIAGE. PT NURSE STATES THAT HE FELL YESTERDAY AND LANDED ON HIS BUTTOCKS. STATES THAT PT IS COMPLAINING OF LEFT HIP PAIN TODAY. PT NURSE REPORTS PT WAS ABLE TO WALK WITH HIS WALKER TODAY BUT SEEMED UNSTEADY. Source: patient, caregiver Exam Limitations: clinical condition (PADMINI HE APRN) History of Present Illness Date Seen by Provider: Feb 07, 2023 Time Seen by Provider: 16:56 Initial Comments 87-year-old male presents to the ER via EMS with complaint of left hip pain. Patient has dementia, but was able to state that he fell yesterday while going to the bathroom. Fall was unwitnessed. Caregiver states that patient possibly hit his head. Patient does take blood thinners. He also complains of right knee pain, states that his knee has been hurting for quite a while. Caregiver reports that patient was not complaining of pain yesterday, started complaining of pain today. States that he has been able to walk, but has been less steady than usual. Due to patient's dementia, he forgets to use his call light, and often gets up on his own without assistance. Other past medical history includes hypertension, hyperlipidemia, CAD, BPH, gout. (PADMINI HE APRN) Allergies and Home Medications Allergies Coded Allergies: No Known Drug Allergies (Unverified , 10/29/14) Patient Home Medication List Home Medication List Reviewed: Yes (PADMINI HE APRN) Allopurinol (Zyloprim Tablet) 300 Mg Tab, 300 MG PO DAILY, (Reported) Entered as Reported by: YOLANDA VASQUEZ on 10/29/141937 Amlodipine Besylate (Amlodipine Besylate) 5 Mg Tablet, 5 MG PO DAILY Prescribed by: HYUN POMPA on 05/03/18 1409 Aspirin (Aspir 81) 81 Mg Tablet.dr, 81 MG PO BID Prescribed by: CALVIN GREEN on 11/08/14 1016 Atorvastatin (Lipitor Tablet) 20 Mg Tablet, 20 MG PO 1700, (Reported) Entered as Reported by: YOLANDA VASQUEZ on 10/29/141937 Cephalexin (Cephalexin) 500 Mg Tablet, 500 MG PO BID Prescribed by: HYUN POMPA on 05/03/18 1409 Docusate Sodium (Colace) 100 Mg Cap, 100 MG PO DAILY Prescribed by: CALVIN GREEN on 11/08/14 1008 Labetalol Hcl (Labetolol) 200 Mg Tablet, 200 MG PO BID, (Reported) Entered as Reported by: YOLANDA VASQUEZ on 10/29/141937 Lisinopril (Prinivil) 40 Mg Tablet, 40 MG PO DAILY, (Reported) Entered as Reported by: YOLANDA VASQUEZ on 10/29/141937 [place]-3/Dha/Epa/Fish Oil (Fish Oil 1,400 Mg Softgel) 1 Each Capsule.dr, 1,400 MG PO DAILY, (Reported) Entered as Reported by: YOLANDA VASQUEZ on 10/29/141937 Vit B12/Lm-Folate Ca/Vit B6/B2 (Cerefolin Tablet) 1 Tab Tablet, 1 TAB PO DAILY, (Reported) Entered as Reported by: CHELLY STOKES on 10/31/14 1059 [Amlodipine Besylate] 10 MG TABLET, 10 MG PO DAILY Prescribed by: CALVIN GREEN on 11/01/14 0801 Review of Systems Constitutional: see HPI (PADMINI HE APRN) Past Xemusul-Xtdmgw-Ojwmuc Hx Immunizations Up To Date Tetanus Booster (TDap): Unknown First/Initial COVID19 Vaccinat: 08/11/20 Second COVID19 Vaccination Antonio: 08/11/20 (PADMINI HE APRN) Seasonal Allergies Seasonal Allergies: No (PADMINI HE APRN) Past Medical History Surgeries: Yes (KNEE SURGERY-; LEFT ROTATOR CUFF REPAIR) Orthopedic Respiratory: No Cardiac: Yes High Cholesterol, Hypertension Neurological: Yes Dementia, Stroke, TIA Reproductive Disorders: No Sexually Transmitted Disease: No HIV/AIDS: No Gastrointestinal: No Musculoskeletal: Yes (LEFT SIDE 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 8.0oz. 95.922098dy; 29.00 BMI Method:Stated General Appearance: No Apparent Distress, WD/WN HEENT: PERRL/EOMI Neck: Normal Inspection, Supple Cardiovascular: Regular Rate, Rhythm Respiratory: Lungs Clear, Normal Breath Sounds, No Accessory Muscle Use, No Respiratory Distress Extremity: Other (Tenderness in left hip, no tenderness in right hip. No pain with range of motion of right knee. Mild pain with palpation of right knee.) Neurologic/Psychiatric: Alert, Normal Mood/Affect Skin: Normal Color, Warm/Dry (PADMINI HE APRN) Progress/Results/Core Measures Results/Orders Vital Signs/I&O 02/07/23 02/07/23 16:50 18:04 Temp 36.8 Pulse 67 74 Resp 18 B/P (MAP) 142/74 (96) 132/73 Pulse Ox 97 96 (MAGDY,NELLY K DO) Blood Pressure Mean: 96 Progress Progress Note : Progress Note Patient seen and evaluated, resting comfortably in bed, no acute distress. Based on exam and symptoms, x-ray of left hip and pelvis ordered. CT of head and neck ordered as well due to unwitnessed fall and patient being on blood thinners. [address] X-[address] CT reviewed. X-ray shows mild bilateral hip joint osteoarthritis, no fracture or dislocation. CT head and neck shows no acute intracranial process or fracture or traumatic malalignment of the cervical spine. Does show stable degenerative disc disease. Results discussed with patient and son. Discharge instructions and return precautions provided. (PADMINI HE APRN) Diagnostic Imaging Diagonstic Imaging: Xray Plain Films/CT/US/NM/MRI: pelvis, hip Comments [facility] [place] NAME: SILVIANOCARLOS [facility] REC#: [id number] PT STATUS: REG ER : 1935 PHYSICIAN: PADMINI HE APRN ADMIT DATE: 02/07/23/ER Draft Date of Exam:02/07/23 PELVIS WITH LEFT HIP 2-3 VIEWS EXAMINATION: Left hip unilateral 2 or 3 views (w/pelvis when done). HISTORY: Pelvic, hip pain. COMPARISON: None available. FINDINGS: There is mild bilateral hip joint osteoarthritis. No fracture or dislocation. There has been a prior hernia repair. Alignment is normal. IMPRESSION: Mild bilateral hip joint osteoarthritis. Dictated on workstation # [id number] Dict: 02/07/235 Trans: 02/07/231716 [facility] [id number] Interpreted by: MARILU NUR MD Electronically signed by: Alyssagonswendy Imaging: CT Plain Films/CT/US/NM/MRI: c-spine, head Comments [facility] [place] [place] NAME: CARLOS SHORE [facility] REC#: [id number] PT STATUS: REG ER : 1935 PHYSICIAN: PADMINI HE APRN ADMIT DATE: 02/07/23/ER Signed Date of Exam:02/07/23 CT HEAD/CERVICAL SPINE WO PROCEDURE: CT head and CT cervical spine without contrast. TECHNIQUE: Multiple contiguous axial images were obtained through the brain and cervical spine without the use of intravenous contrast. Sagittal and coronal reformations through the cervical spine were then performed. Auto Exposure Controls were utilized during the CT exam to meet ALARA standards for radiation dose reduction. INDICATION: Trauma COMPARISON: 04/10/2021 FINDINGS: Head: No hyperdense hemorrhage or space-occupying mass. No hydrocephalus or midline shift. No evidence of territorial infarct. Basilar cisterns are patent. No focal scalp swelling. No skull fracture. The paranasal sinuses and mastoid air cells are clear. Cervical spine: No acute fracture or traumatic malalignment. Multilevel degenerative disc disease is unchanged. No high-grade spinal canal stenosis. No retropharyngeal fluid collection. Airway is patent. No cervical lymphadenopathy. Visualized thyroid is normal. IMPRESSION: 1. No acute intracranial process or skull fracture. 2. No acute fracture or traumatic malalignment of the cervical spine. Dictated by: Dictated on workstation # [id number] Dict: 02/07/23 1729 Trans: 02/07/231730 [facility] [id number] Interpreted by: MARCELO MELENDEZ MD Electronically signed by: MARCELO MELENDEZ MD 02/07/231730 (PADMINI HE APRN) Departure Impression Primary Impression: Contusion of hip Qualified Codes: S70.02XA - Contusion of left hip, initial encounter Additional Impression: Fall Disposition: 01 HOME, SELF-CARE Condition: Stable Departure-Patient Inst. Decision time for Depature: 17:57 (PADMINI HE APRN) Referrals: CALVIN GREEN MD (PCP/Family) Primary Care Physician Patient Instructions: Contusion (DC) Add. Discharge Instructions: You may take Tylenol as needed for pain. Follow-up with primary care provider. Return for any new, concerning, or worsening symptoms. All discharge instructions reviewed with patient and/or family. Voiced understanding. ATTENDING PHYSICIAN NOTE: I WAS PHYSICALLY PRESENT ER PHYSICIAN, BUT I WAS NOT INVOLVED IN ANY DECISION MAKING OR ANY CARE OF THIS PATIENT, AND I AM NOT COLLABORATING PHYSICIAN. (NELLY CURRAN DO) PADMINI HE APRN Feb 07, 2023 17:10 NELLY CURRAN DO Feb 09, 2023 06:48
[2023-02-07] MEDS ORDERED: ACETAMINOPHEN 500 MG TABLET PO ONE (17:15)
--- NOTE | 2023-02-07 17:18 | Diagnostic Imaging Report ---
EXAMINATION: Left hip unilateral 2 or 3 views (w/pelvis when done). HISTORY: Pelvic, hip pain. COMPARISON: None available. FINDINGS: There is mild bilateral hip joint osteoarthritis. No fracture or dislocation. There has been a prior hernia repair. Alignment is normal. IMPRESSION: Mild bilateral hip joint osteoarthritis. Dictated by: Dictated on workstation # [id number]
--- NOTE | 2023-02-07 17:33 | Diagnostic Imaging Report ---
PROCEDURE: CT head and CT cervical spine without contrast. TECHNIQUE: Multiple contiguous axial images were obtained through the brain and cervical spine without the use of intravenous contrast. Sagittal and coronal reformations through the cervical spine were then performed. Auto Exposure Controls were utilized during the CT exam to meet ALARA standards for radiation dose reduction. INDICATION: Trauma COMPARISON: 04/10/2021 FINDINGS: Head: No hyperdense hemorrhage or space-occupying mass. No hydrocephalus or midline shift. No evidence of territorial infarct. Basilar cisterns are patent. No focal scalp swelling. No skull fracture. The paranasal sinuses and mastoid air cells are clear. Cervical spine: No acute fracture or traumatic malalignment. Multilevel degenerative disc disease is unchanged. No high-grade spinal canal stenosis. No retropharyngeal fluid collection. Airway is patent. No cervical lymphadenopathy. Visualized thyroid is normal. IMPRESSION: 1. No acute intracranial process or skull fracture. 2. No acute fracture or traumatic malalignment of the cervical spine. Dictated by: Dictated on workstation # [id number]
[2023-02-07 18:04] VITALS: BP 132/73
== END 2023-02-07 18:04 | disposition home or self-care (01) ==
LOC: EDUNIT# 16:47 → ER 16:49
DX: S70.02XA Contusion of left hip, initial encounter (principal); M25.561 Pain in right knee; Z79.01 Long term (current) use of anticoagulants; W19.XXXA Unspecified fall, initial encounter; Y92.129 Unspecified place in nursing home as the place of occurrence of the external cause
CPT/HCPCS: 70450; 72125